=== PATIENT | male | born 1930 | race Caucasian/White ===

== ENCOUNTER 2017-09-22 13:25 | Inpatient (IN) | payer MEDICARE, MEDICAID ==
--- NOTE | 2017-09-22 13:37 | Emergency Department Record ---
History of Present Illness - General Chief complaint: Weakness Stated complaint: GENERAL WEAKNESS Time Seen by Provider: 09/22/17 13:30 Source: Family, EMS Mode of Arrival: EMS Limitations: Altered mental status (chronic life long impariment) - History of Present Illness Initial comments: 86 yo male presents with his sister by ambulance. The patient has life long mental impairment. The last one day he has become very weak and shaky. His baseline is that he is non verbal. No falls. He normally walks with the aid of a walker. He had mild difficulties last night. Today he was too weak and shaky to walk. He lives with his sister. She is his rheumatology nurse. No fevers, vomiting or diarrhea. No outward signs of pain. PCP is in [place]. -: Days(s) (1) Location: Generalized Severity: Moderate Consistency: Constant Improves with: None Worsens with: Exertion, Movement Context: History of similar Associated Symptoms: Denies other symptoms - [place] Coma Scale Eye Response: (4) Open spontaneously Motor Response: (6) Obeys commands Verbal Response: (3) Inappropriate words [place] Total: 13 - Related Data Allergies Allergy/AdvReac Type Severity Reaction Status Date / Time metformin Allergy DIARRHEA Verified 09/22/17 13:35 Review of Systems Constitutional: Reports: Weakness. Denies: Chills, Fever, Malaise Eyes: Denies: Eye discharge, Eye pain, Photophobia, Vision change ENT: Denies: Congestion, Throat pain Respiratory: Denies: Cough, Dyspnea, Hemoptysis, Stridor, Wheezes Cardiovascular: Denies: Chest pain, Palpitations, Syncope Endocrine: Reports: Fatigue. Denies: Polydipsia, Polyuria Gastrointestinal: Denies: Abdominal pain, Diarrhea, Nausea, Vomiting Genitourinary: Denies: Dysuria, Frequency, Hematuria Musculoskeletal: Denies: Arthralgia, Back pain, Joint swelling, Myalgia, Neck pain Skin: Denies: Bruising, Change in color, Rash Neurological: Reports: Tremors, Weakness. Denies: Headache, Numbness Psychiatric: Denies: Anxiety Hematological/Lymphatic: Denies: Blood Clots, Easy bleeding, Easy bruising, Swollen glands Past Medical History - SOCIAL HISTORY Smoking Status: Never smoker - RESPIRATORY Hx Respiratory Disorders: Yes Hx Pneumonia: Yes - CARDIOVASCULAR Hx Cardio Disorders: Yes Hx Heart Attack: Yes Comment:: High cholesterol - NEURO Hx Neuro Disorders: No - GI Hx GI Disorders: Yes Hx Reflux: Yes - Hx Genitourinary Disorders: Yes Hx Prostate Problems: Yes (cancer, shots when psa elevated) - ENDOCRINE Hx Endocrine Disorders: Yes Hx Diabetes: Yes Hx Thyroid Disease: Yes - MUSCULOSKELETAL Hx Musculoskeletal Disorders: Yes Hx Arthritis: Yes - PSYCH Hx Psych Problems: No - HEMATOLOGY/ONCOLOGY Hx Hematology/Oncology Disorders: Yes Hx Cancer: Yes (prostate, skin) Family Medical History Hx Cancer: Brother/Sister Hx Heart Disease: Father Physical Exam - General General Appearance: Alert, Cooperative, No acute distress, Other (Non verbal) Limitations: No limitations - Head Head exam: Normal inspection - Eye Eye exam: negative: Normal appearance (disconjugate gaze, baseline), Conjunctival injection, Scleral icterus - ENT ENT exam: Normal exam, Mucous membranes moist Ear exam: Normal external inspection Nasal Exam: Normal inspection Mouth exam: Normal external inspection Teeth exam: Normal inspection - Neck Neck exam: Normal inspection, Full ROM. negative: Meningismus, Tenderness - Respiratory Respiratory exam: Normal lung sounds bilaterally. negative: Respiratory distress, Rhonchi, Stridor, Wheezes - Cardiovascular Cardiovascular Exam: Regular rate, Normal rhythm, Normal heart sounds Peripheral Pulses: 2+: Radial (R), Radial (L) - GI/Abdominal GI/Abdominal exam: Soft. negative: Distended, Guarding, Rebound, Rigid, Tenderness - Rectal Rectal exam: Deferred - exam: Deferred - Extremities Extremities exam: Normal inspection, Full ROM, Normal capillary refill. negative: Tenderness - Back Back exam: Denies: CVA tenderness (R), CVA tenderness (L) - Neurological Neurological exam: Alert - Psychiatric Psychiatric exam: negative: Agitated, Anxious - Skin Skin exam: Dry, Intact, Normal color, Warm Course - Reevaluation(s) Reevaluation #1: 09/22/17 13:37 EKG 1331 Sinus rhythm rate is 77, intervals Qtc 466, W[place] 260 RBBB, axis normal, ST NS changes 09/22/17 13:38 No old EKG available. 09/22/17 14:25 The CBC and CMP were reviewed No acute changes UA, TSH, and radiology studies pending 09/22/17 15:09 The HCT was negative for acute process. Small vessel ischemic disease CXR stable cardiomegaly 09/22/17 15:12 Waiting for UA still at this time. I discussed possible cath ua. 09/22/17 15:55 Ambulation trial attempted the patient was too shakey and weak. 09/22/17 16:13 The UA was reviewed with negative N and LE, no WBC, few bacteria 09/22/17 16:37 Given his weakness, not able to walk he will be admitted to Dr Moss He requests IVF at 50ml/hr and cipro for the bacteria in the urine. Lab was called to ensure a culture is sent of the urine Medical Decision Making - Lab Data Result diagrams: 09/22/17 13:55 09/22/17 13:40 Disposition Disposition: Admit Clinical Impression: Weakness generalized, Dehydration Disposition: Still a Patient at [facility] Decision to Admit: Admit from ER Decision to Admit Date: 09/22/17 Decision to Admit Time: 16:19 Condition: (2) Stable Forms: Patient Portal Access Time of Disposition: 16:19 Quality - Quality Measures Quality Measures: N/A - Blood Pressure Screening Does Patient Have Any of the Following: Active Dx of HTN Blood Pressure Classification: Hypertensive Reading Systolic Measurement: 141 Diastolic Measurement: 78 Screening for High Blood Pressure: Patient Exclusion, Hx of HTN [G9744]
[2017-09-22 14:02] LABS: HEMATOCRIT 41.1 % (42.0-52.0); HEMOGLOBIN 13.6 gm/dl (14.0-18.0); MEAN CELL VOLUME 92.2 fl (81-97); MEAN CORPUSCULAR HGB CONC 33.1 g/dl (32-36); MEAN PLATELET VOLUME 11.1 fl (7.4-10.4); PLATELET COUNT 256 K/uL (130-400); RED BLOOD COUNT 4.46 M/uL (4.40-5.70); RED CELL DISTRIBUTION WIDTH 12.8 % (11.5-14.5); WHITE BLOOD COUNT W/O DIFF 10.1 K/uL (4.2-12.2)
[2017-09-22 14:08] LABS: MEAN CORPUSCULAR HEMOGLOBIN 30.4 pg (27-33)
[2017-09-22 14:16] LABS: BLOOD UREA NITROGEN 20 mg/dL (8-23); CREATININE 1.1 mg/dL (0.7-1.2); EST GLOMERULAR FILTRATION RATE > 60 mL/min
[2017-09-22 14:17] LABS: INR 1.1; PROTHROMBIN TIME (PATIENT) 11.4 SECONDS (9.5-12.1)
[2017-09-22 14:19] LABS: GLUCOSE,RANDOM 258 mg/dL (74-109)
[2017-09-22 14:22] LABS: ALB/GLOB RATIO 1.4 (1.1-1.8); ALBUMIN 4.1 g/dL (4.0-5.0); ALKALINE PHOSPHATASE 92 U/L (40-129); ALT/SGPT 14 U/L (<41); AST/SGOT 12 U/L (10.0-50.0)
[2017-09-22 14:36] LABS: THYROID STIMULATING HORMONE 1.95 uIU/mL (0.270-4.20)
[2017-09-22] MEDS ORDERED: 0.9 % SODIUM CHLORIDE 1,000 ML BAG IV ONE (15:12)
[2017-09-22 15:53] LABS: URINE APPEARANCE CLEAR; URINE BILIRUBIN NEGATIVE (NEGATIVE); URINE BLOOD NEGATIVE (NEGATIVE); URINE COLOR YELLOW; URINE KETONE NEGATIVE (NEGATIVE); URINE LEUKOCYTE ESTERASE NEGATIVE (NEGATIVE); URINE NITRITE NEGATIVE (NEGATIVE); URINE PROTEIN TRACE (NEGATIVE); URINE UROBILINOGEN 0.2 E.U./dL (0.20 - 1.00)
[2017-09-22 16:08] LABS: URINE BACTERIA FEW; URINE EPITHELIAL CELLS 0 - 2 (FEW); URINE RBC 0 - 2 (NONE SEEN); URINE WBC 0 - 2 (0-2/hpf)
[2017-09-22] MEDS ORDERED: 0.9 % SODIUM CHLORIDE 1000ML 1,000 ML IV PRN (18:04)
[2017-09-22] MEDS: CIPROFLOXACIN LACTATE/D5W 400 MG/200 ML BAG IVPB SCH (18:55)
[2017-09-23] MEDS: ACETAMINOPHEN 325 MG TAB PO PRN ×3 (02:36→22:07)
[2017-09-23] MEDS: CIPROFLOXACIN LACTATE/D5W 400 MG/200 ML BAG IVPB SCH ×2 (06:03→18:20)
[2017-09-23] MEDS ORDERED: GLIMEPIRIDE 2 MG TABLET PO SCH (07:00)
--- NOTE | 2017-09-23 07:17 | CT SCAN REPORT ---
EXAM: CT OF THE BRAIN WITHOUT CONTRAST HISTORY: WEAKNESS. TECHNIQUE: CT of the brain without contrast was obtained. Comparison: None. FINDINGS: The globes are intact. Mucosal thickening of the maxillary sinuses bilaterally. There is no displaced or depressed skull fracture. There is motion artifact which significantly limits the exam and degrades image quality. CT is limited for evaluation of acute infarct. No CT evidence for large or territorial acute infarct. No discreet mass or midline shift. Diffuse atrophy. Small vessel ischemic change. IMPRESSION: LIMITED DUE TO MOTION. NO CT EVIDENCE FOR ACUTE INTRACRANIAL ABNORMALITY. ATROPHY. SMALL VESSEL ISCHEMIC CHANGE. JOB NUMBER: [id number] [facility]
--- NOTE | 2017-09-23 07:19 | RADIOLOGY REPORT ---
EXAM: PORTABLE CHEST HISTORY: WEAKNESS. TECHNIQUE: Portable frontal view of the chest was obtained. Comparison: 05/14/16 chest. FINDINGS: Cardiomegaly with atheromatous change of the thoracic aorta. Osteopenia. Elevation of the right hemidiaphragm. Calcified granulomata left lung base. No pneumothorax. The lungs are otherwise clear. IMPRESSION: CARDIOMEGALY. NO ACUTE CARDIOPULMONARY PROCESS. JOB NUMBER: [id number] MTDD
[2017-09-23] MEDS: PANTOPRAZOLE SODIUM 40 MG TABLET PO SCH (08:41)
[2017-09-23] MEDS: GLIMEPIRIDE 2 MG TABLET PO SCH (08:41)
[2017-09-23] MEDS: MIGLITOL PO SCH ×3 (08:41→18:20)
[2017-09-23] MEDS: NOVOLOG FLEXPEN (INSULIN ASPART) 100 UNITS/ML SQ SCH ×3 (08:42→18:19)
--- NOTE | 2017-09-23 10:10 | History and Physical Report ---
DATE: 09/22/2017 CHIEF COMPLAINT: Weakness, shaky. HISTORY OF PRESENT ILLNESS: This is an 86-year-old male who is nonverbal since postop T&A as a child and severely mentally impaired. His caregiver is his sister. He is weaker than usual. He was having difficulties walking. He normally walks with a walker and he is slightly more shaky than usual. He did eat his breakfast today. He does not appear to be in pain. When he came into the emergency department, he was evaluated by Dr. Ruvalcaba. No history of falls. Was too weak to send home and shaky. He was admitted for dehydration and weakness, possible urinary tract infection. PAST MEDICAL HISTORY: Mentally improved from T&A in childhood, hypercholesterolemia, history of pneumonia in the past, GERD, urinary tract infections, prostate cancer and gets Lupron shots, diabetes mellitus, hypothyroidism, arthritis. PAST SURGICAL HISTORY: Bilateral cataract surgery, temporal artery biopsy, and biopsy of the prostate. MEDICATIONS: 1. Levothyroxine 100 mcg daily. 2. Amaryl 8 mg p.o. daily. 3. Lipitor 20 mg daily. 4. Tenormin 25 mg daily. 5. Aspirin 81 mg daily. 6. Flomax 0.4 mg daily. 7. Prilosec 20 mg daily. 8. Glyset 50 mg t.i.d. with meals. ALLERGIES: METFORMIN. FAMILY/PSYCHOSOCIAL HISTORY: Unremarkable. Caregiver is sister. Brother and sister had cancer. Father had heart disease. Never smoked. No alcohol or drug use. REVIEW OF SYSTEMS: HEENT: No upper respiratory infection symptoms, cough, cold, or congestion. Cardiovascular: No chest pain, palpitations, or arrhythmias. Respiratory: No cough, cold, or congestion. No smoking history. Gastrointestinal: No nausea, vomiting, diarrhea, black stools, or bloody stools. Genitourinary: No dysuria, hematuria, frequency, or burning on urination. He did have bacteria in the urine. Musculoskeletal: He does have arthritis and has some difficulties moving at times. Walks with a walker. Neurological: No CVA, paralysis, or paresthesias. Mentally impaired and nonverbal. Endocrine: He has diabetes mellitus type 2 and hypothyroidism. Integument: No rash, ulcers, change in moles, or yellow skin. PHYSICAL EXAMINATION: VITALS: Height 5 feet 5 inches, weight 192 pounds. Temperature 98.4, pulse 82, blood pressure 125/78, respiratory rate 20, pulse ox 95% on room air. Weight 192 pounds. HEENT: Pupils are equal, round, and reactive to light and accommodation. Extraocular muscles are intact. Throat is clear. Nose is clear. Tympanic membranes are payan. NECK: Supple. No jugular venous distention. No hepatojugular reflux. No carotid bruits. Thyroid is smooth. CARDIOVASCULAR: Regular rate and rhythm without murmurs, clicks, rubs, or gallops. RESPIRATORY: Clear to auscultation and percussion. ABDOMEN: Soft, nontender. No hepatosplenomegaly, no masses, no tenderness. Bowel sounds are active. EXTREMITIES: No pitting edema. No cyanosis, no clubbing. Full range of motion. Peripheral pulses are good. BREASTS: Normal male breasts. RECTAL: Exam deferred. GENITALIA: Deferred. NEUROLOGIC: Cranial nerves II-XII intact. No gross defects. Sensation normal, strength normal. Deep tendon reflexes equal bilaterally with Babinski negative. He is nonverbal. MENTAL STATUS: Alert but he is unable to test for time, place, or person orientation. IMPRESSION: 1. Weakness. 2. Dehydration. 3. Urinary tract infection. 4. Mentally handicapped since childhood and nonverbal. His caregiver is his sister. 5. Diabetes mellitus type 2. 6. Hypothyroidism. PLAN: Cautious IV hydration. Will start Cipro twice a day and further evaluation. MTDD
[2017-09-23] MEDS: LEVOTHYROXINE SODIUM 100 MCG TABLET PO SCH (11:21)
[2017-09-23] MEDS: ATORVASTATIN 20 MG TABLET PO SCH (11:21)
[2017-09-23] MEDS: ASPIRIN 81 MG TABEC PO SCH (11:22)
[2017-09-23] MEDS: ATENOLOL 25 MG TABLET PO SCH (11:22)
[2017-09-23] MEDS ORDERED: ZINC OXIDE 28.35 GM TUBE TOP PRN (11:26)
[2017-09-23] MEDS: ENOXAPARIN 40 MG/0.4 ML SYR SC SCH (11:28)
[2017-09-23] MEDS: TAMSULOSIN HCL 0.4 MG CAP.ER.24H PO SCH (11:30)
--- NOTE | 2017-09-23 15:04 | Rehab Evaluation ---
Patient Information - Patient Information Diagnosis: weakness, dehydration, bacteria in urine Ordered Treatment: OT Evaluate and Treat Status: Initial Evaluation Surgery: No Past Medical/Surgical Hx: PAST MEDICAL/SURGICAL HISTORY Past Surgical History bilateral cataracts temporal artery biopsy...negative PMH - Respiratory Hx Respiratory Disorders Yes Hx Pneumonia Yes PMH - Cardiovascular Hx Cardiovascular Disorders Yes Hx Heart Attack Yes Comment: High cholesterol PMH - Neuro Hx Neurological Disorders No PMH - GI Hx Gastrointestinal Disorders Yes Hx Gastroesophageal Reflux Yes PMH - Hx Genitourinary Disorders Yes Hx Prostate Problems Yes: cancer, shots when psa elevated PMH - Endocrine Hx Endocrine Disorders Yes Hx Diabetes Yes Hx Thyroid Disease Yes PMH - Musculoskeletal Hx Musculoskeletal Disorders Yes Hx Arthritis Yes PMH - Psych Hx Psychiatric Problems No PMH - Hematology/Oncology Hx Hematology/Oncology Yes Disorders Hx Cancer Yes: prostate, skin Hx Chemotherapy Yes Premorbid Status: Detail (Pt is developmentally delayed and lives with his sister. He has 2 steps at the entrance and family assists him with these. They are planning to install a ramp. His sister completes all of his self cares including bathing, dressing, grooming and hygeine. He is able to feed himself. He ambulates with a 2 wheeled walker and is Ind with bed mobility at home.) Social History: Detail (Very supportive family) Precautions: [place], Fall, Other (impaired cognition) - Time With Patient Total Time Spent With Patient (Min): 35 Treatment Procedures: Detail (OT eval low complexity) Subjective Information - Subjective Information Other (Per pt's siblings.) Objective Data - Pain Pain Present: Yes (Pt was c/o left knee pain during evaluation.) - Mental Status Patient Orientation: Person (Pt responds to name but he is non-verbal. He was unable to follow verbal commands and required tactile cues for evaluation.) - Visual Perception Other (Unable to formally determine) - ROM Other (Unable to formally assess due to impaired cognition, UE AROM appears functional for patients level of activity.) - Strength/Tone Other (Unable to formally test due to impaired cognition, UE MMT appears functional for his current level of activity.) - Coordination Other (Unable to formally assess.) - Bed Mobility Needs Assist (Min assist required for supine to sit, he completed sit to supine Indly but required max assist x 2 to scoot up in bed.) - Transfers Needs Assist (Sit to stand x 1 from EOB to walker with mod assist x 2. Pt only able to stand for several seconds due to c/o left knee pain.) - Balance Balance Sitting: Fair (Pt required some assist with sitting balance at EOB.) Balance Standing: Poor - Gait Detail (Pt unable to ambulate at this time.) - ADL's/IADL's Detail (Pt requires total assist for all self cares and family report they are assisting with feeding.) Therapy Assessment - Therapy Assessment Detail (Pt presents with significant impairments with cognition, functional mobility and decreased Ind with ability to feed self.) Problem List - Problem List Occupational Therapy Problem List: Detail (1. Decreased Ind with feeding self. 2. Decreased functional mobility needed for safe return home with sister.) Goals - Goals Occupational Therapy Goals: 1. Pt will be Ind with feeding self. 2. Pt will be Ind with bed mobility. 3. Pt will amb 20 feet with 2 wheeled walker. Prognosis - Prognosis Moderate Plan - Plan Occupational Therapy Plan: OT 2-4 days per week to address self cares, functional mobility to allow safe return home with sister.
--- NOTE | 2017-09-23 15:57 | Rehab Evaluation ---
Patient Information - Patient Information Diagnosis: weakness, dehydration, bacteria in urine Ordered Treatment: PT Evaluate and Treat Status: Initial Evaluation Surgery: No Past Medical/Surgical Hx: PAST MEDICAL/SURGICAL HISTORY Past Surgical History bilateral cataracts temporal artery biopsy...negative PMH - Respiratory Hx Respiratory Disorders Yes Hx Pneumonia Yes PMH - Cardiovascular Hx Cardiovascular Disorders Yes Hx Heart Attack Yes Comment: High cholesterol PMH - Neuro Hx Neurological Disorders No PMH - GI Hx Gastrointestinal Disorders Yes Hx Gastroesophageal Reflux Yes PMH - Hx Genitourinary Disorders Yes Hx Prostate Problems Yes: cancer, shots when psa elevated PMH - Endocrine Hx Endocrine Disorders Yes Hx Diabetes Yes Hx Thyroid Disease Yes PMH - Musculoskeletal Hx Musculoskeletal Disorders Yes Hx Arthritis Yes PMH - Psych Hx Psychiatric Problems No PMH - Hematology/Oncology Hx Hematology/Oncology Yes Disorders Hx Cancer Yes: prostate, skin Hx Chemotherapy Yes Premorbid Status: Detail (Pt is developmentally delayed and lives with his sister. He has 2 steps at the entrance and family assists him with these. They are planning to install a ramp. His sister completes all of his self care including bathing, dressing, grooming and hygeine. He is able to feed himself. He ambulates with a 2 wheeled walker and is Ind with bed mobility at home.) Social History: Detail (Very supportive family) Precautions: [place], Fall, Other (impaired cognition) - Time With Patient Total Time Spent With Patient (Min): 25 Treatment Procedures: Detail (Initial Evaluation) Subjective Information - Subjective Information Per Patient (The patient moaned in pain when standing and rubbed his L knee.) Objective Data - Mental Status Patient Orientation: Person (Unable to assess mentation due to patient was nonverbal however the patient followed simple commands and shook his head no to communicate he couldn't do something.) - ROM Not within normal limits (Unable to fully assess however L knee flexion was minimally limited. L knee exhibited increased edema and was warm to touch.) - Strength/Tone Not within normal limits (Unable to Manual muscle test due to patient did not fully understand use of resistance.) - Bed Mobility Needs Assist (The patient required minimal PA of 1 with supine to and from sit transfer.) - Transfers Needs Assist (The patient required mod. PA of 2 for sit to and from stand transfer to a 2 wheeled walker. The patient stood for aprox. 15 sec. Patient winced and rubbed L knee upon sitting. When asked to stand again patient shook his head no and laid back in bed.) - Balance Balance Sitting: Good Balance Standing: Poor - Gait Detail (The patient did not ambulate.) Therapy Assessment - Therapy Assessment Detail (The patient required assistance with bed mobility and transfers. Patient's left knee appears painful, the patient was reluctant to weight bear on L LE and knee exhibited increased swelling and was warm to touch. RN was notified. Feel the patient's pain is limiting the patient's ability to ambulate. Feel the patient will benefit from ongoing PT to return the patient to previous functional level.) Problem List - Problem List Physical Therapy Problem List: Detail (1)Painful, swollen L knee 2) Minimal assistance with bed mobility and moderate assist with transfers 3) nonambulatory ) Occupational Therapy Problem List: Detail (1. Decreased Ind with feeding self. 2. Decreased functional mobility needed for safe return home with sister.) Goals - Goals Physical Therapy Goals: 1) The patient will be independent with bed mobility. 2 ) The patient will achieve sit to and from stand transfer with supervision . 3 ) The patient will ambulate with wheeled walker household distances with supervision for safety. Occupational Therapy Goals: 1. Pt will be Ind with feeding self. 2. Pt will be Ind with bed mobility. 3. Pt will amb 20 feet with 2 wheeled walker. Plan - Plan Physical Therapy Plan: PT 1-2 times a day for gait training, transfer training and bed mobility, LE strengthening exercises. Occupational Therapy Plan: OT 2-4 days per week to address self cares, functional mobility to allow safe return home with sister.
--- NOTE | 2017-09-23 16:04 | Inpatient Certification ---
Inpatient Certification Admit to inpatient care: Based on my medical assessment, after consideration of patient's risk factors (age, co-morbidities and patient presenting symptoms and acuity), I expect that this patient will remain in the hospital greater than or equal to two midnights and that the services needed warrant inpatient care because: Patient Risk Factors: [] Estimated length of stay: [2] The patient may reasonably be expected to be discharged or transferred to a hospital within 96 hours after admission to [facility]. Services needed: [iv fluids and antibiotics] Post hospital care (if known): [] I certify that my determination is in accordance with my understanding of Medicare requirements for reasonable and necessary inpatient services. 09/23/17 16:03
[2017-09-24] MEDS: ACETAMINOPHEN 325 MG TAB PO PRN (04:50)
[2017-09-24] MEDS: CIPROFLOXACIN LACTATE/D5W 400 MG/200 ML BAG IVPB SCH ×2 (05:00→18:02)
[2017-09-24] MEDS: PANTOPRAZOLE SODIUM 40 MG TABLET PO SCH (06:41)
[2017-09-24] MEDS: LEVOTHYROXINE SODIUM 100 MCG TABLET PO SCH (06:41)
[2017-09-24] MEDS: NOVOLOG FLEXPEN (INSULIN ASPART) 100 UNITS/ML SQ SCH ×3 (08:00→18:00)
[2017-09-24] MEDS: MIGLITOL PO SCH ×3 (08:01→18:07)
[2017-09-24] MEDS: GLIMEPIRIDE 2 MG TABLET PO SCH (09:19)
[2017-09-24] MEDS: ASPIRIN 81 MG TABEC PO SCH (10:01)
[2017-09-24] MEDS: ATORVASTATIN 20 MG TABLET PO SCH (10:01)
[2017-09-24] MEDS: ATENOLOL 25 MG TABLET PO SCH (10:02)
[2017-09-24] MEDS: ENOXAPARIN 40 MG/0.4 ML SYR SC SCH (10:02)
[2017-09-24] MEDS: TAMSULOSIN HCL 0.4 MG CAP.ER.24H PO SCH (10:02)
--- NOTE | 2017-09-24 11:43 | Physical Therapy Tx Note ---
Physical Therapy Tx Note - Treatment Note Total Time Spent With Patient: 10 Physical Therapy Tx Note: Detail (Pt in bed upon arrival, denied pain at rest. Initially seemed agreeable to try bed mobility, sitting, standing, but then started shaking his head no and covering himself with bed linens. Spoke with nrsg; will attempt mobility when patient's sister is present later today.) Physical Therapy Problem List: Detail (1)Painful, swollen L knee 2) Minimal assistance with bed mobility and moderate assist with transfers 3) nonambulatory ) Physical Therapy Goals: 1) The patient will be independent with bed mobility. 2 ) The patient will achieve sit to and from stand transfer with supervision . 3 ) The patient will ambulate with wheeled walker household distances with supervision for safety. Physical Therapy Plan: PT 1-2 times a day for gait training, transfer training and bed mobility, LE strengthening exercises.
[2017-09-24] MEDS ORDERED: PATIENT OWN MED: MC SCH (14:45)
--- NOTE | 2017-09-24 15:38 | Physical Therapy Tx Note ---
Physical Therapy Tx Note - Treatment Note Tolerated: Fair Total Time Spent With Patient: 30 Physical Therapy Tx Note: Detail (Pt reclined in bed upon arrival; sisters Brandy and Lnida present in room. Pt required much encouragement from therapist and from family to participate with therapy. He was able to sit up at edge of bed independently, but needed min assist to scoot forward to get feet on floor. Required mod assist to come to standing at front wheeled walker , with much encouragement from sisters. Stood at walker x 2 for about 15 seconds each, with encouragement. Got back in bed independently but needed heavy moderate assist to reposition self in bed. Discussed possibilities of inpatient rehab vs. home care to facilitate more progress toward previous functional level; told family that I would have Special Library Librarian come speak with him to help develop a plan. Pt left up in bed w/call light in reach and family members present.) Physical Therapy Problem List: Detail (1)Painful, swollen L knee 2) Minimal assistance with bed mobility and moderate assist with transfers 3) nonambulatory ) Physical Therapy Goals: 1) The patient will be independent with bed mobility. 2 ) The patient will achieve sit to and from stand transfer with supervision . 3 ) The patient will ambulate with wheeled walker household distances with supervision for safety. Prognosis: Moderate Physical Therapy Plan: PT 1-2 times a day for gait training, transfer training and bed mobility, LE strengthening exercises.
[2017-09-24] MEDS: ACETAMINOPHEN 325 MG TAB PO SCH (18:05)
[2017-09-24] MEDS: BIOFREEZE TOP SCH (18:07)
[2017-09-25] MEDS: ACETAMINOPHEN 325 MG TAB PO SCH ×3 (00:41→13:53)
[2017-09-25] MEDS: BIOFREEZE TOP SCH ×3 (00:42→13:54)
[2017-09-25] MEDS ORDERED: CALCIUM CARBONATE 500 MG TAB.CHEW PO PRN (01:58)
[2017-09-25] MEDS ORDERED: LEVOTHYROXINE SODIUM 100 MCG TABLET PO SCH (06:00)
[2017-09-25] MEDS: CIPROFLOXACIN LACTATE/D5W 400 MG/200 ML BAG IVPB SCH (06:09)
--- NOTE | 2017-09-25 07:20 | RADIOLOGY REPORT ---
EXAM: LEFT KNEE HISTORY: KNEE PAIN. TECHNIQUE: Two views of the left knee were obtained. Comparison: None. Encounter: Initial. FINDINGS: Osteopenia. Negative for acute fracture or dislocation. Vascular calcifications. Advanced tricompartmental degenerative change. Probable small joint effusion. IMPRESSION: OSTEOPENIA WITH ADVANCED DEGENERATIVE CHANGE. JOB NUMBER: [id number] MTDD
--- NOTE | 2017-09-25 07:21 | RADIOLOGY REPORT ---
EXAM: RIGHT KNEE HISTORY: KNEE PAIN. TECHNIQUE: Two views of the right knee were obtained. Comparison: None. Encounter: Initial. FINDINGS: Osteopenia. Negative for an acute fracture or dislocation. Advanced tricompartmental degenerative change. Small joint effusion. Vascular calcifications. IMPRESSION: OSTEOPENIA WITH ADVANCED DEGENERATIVE CHANGE. JOB NUMBER: [id number] MTDD
[2017-09-25] MEDS: GLIMEPIRIDE 2 MG TABLET PO SCH (08:25)
[2017-09-25] MEDS: PANTOPRAZOLE SODIUM 40 MG TABLET PO SCH (08:26)
[2017-09-25] MEDS: NOVOLOG FLEXPEN (INSULIN ASPART) 100 UNITS/ML SQ SCH ×2 (08:26→11:45)
[2017-09-25] MEDS: MIGLITOL PO SCH ×2 (08:26→11:45)
--- NOTE | 2017-09-25 09:23 | Inpatient Certification ---
Inpatient Certification Admit to inpatient care: Based on my medical assessment, after consideration of patient's risk factors (age, co-morbidities and patient presenting symptoms and acuity), I expect that this patient will remain in the hospital greater than or equal to two midnights and that the services needed warrant inpatient care because: Patient Risk Factors: [mentally impaired] Estimated length of stay: [3days] The patient may reasonably be expected to be discharged or transferred to a hospital within 96 hours after admission to [facility]. Services needed: [iv cipro rehab] Post hospital care (if known): [patient requires a caregiver] I certify that my determination is in accordance with my understanding of Medicare requirements for reasonable and necessary inpatient services. 09/25/17 09:21
[2017-09-25] MEDS ORDERED: IBUPROFEN 400 MG TABLET PO PRN (09:57)
[2017-09-25] MEDS: ASPIRIN 81 MG TABEC PO SCH (10:27)
[2017-09-25] MEDS: TAMSULOSIN HCL 0.4 MG CAP.ER.24H PO SCH (10:31)
[2017-09-25] MEDS: ATORVASTATIN 20 MG TABLET PO SCH (10:31)
[2017-09-25] MEDS: ENOXAPARIN 40 MG/0.4 ML SYR SC SCH (10:31)
[2017-09-25] MEDS: ATENOLOL 25 MG TABLET PO SCH (10:38)
--- NOTE | 2017-09-25 12:48 | Discharge Note ---
VTE H&P Assessment - Risk for VTE Risk for VTE: Yes Risk Level: Moderate Risk Assessment Date: 09/23/17 Risk Assessment Time: 18:00 VTE Orders Placed or Will Be Placed: Yes Discharge Medications - Discharge Medications Prescriptions: Ibuprofen [Motrin 400Mg] 400 mg PO Q6H PRN #30 tablet PRN Reason: Analgesia Home Medications: Ambulatory Orders Aspirin [Adult Low Dose Aspirin EC] 81 mg PO DAILY 05/14/16 [Last Taken 05/14/16 ] Atenolol [Tenormin] 25 mg PO DAILY 05/14/16 [Last Taken 05/14/16] Atorvastatin Calcium [Lipitor] 20 mg PO DAILY 05/14/16 [Last Taken 05/13/16] Glimepiride [Amaryl] 8 mg PO DAILY 05/14/16 [Last Taken 05/14/16] Levothyroxine Sodium [Synthroid] 100 mcg PO DAILY 05/14/16 [Last Taken 05/14/16] Miglitol [Glyset] 50 mg PO TID 05/14/16 [Last Taken 05/13/16] Omeprazole [Prilosec] 20 mg PO DAILY 05/14/16 [Last Taken 05/14/16] Tamsulosin HCl [Flomax] 0.4 mg PO DAILY 05/14/16 [Last Taken 05/13/16] Ibuprofen [Motrin 400Mg] 400 mg PO Q6H PRN #30 tablet 09/25/17 [Last Taken Unknown] Discharge Note - Date Date of Discharge Note: 09/25/17 Condition: (2) Stable Additional Instructions: patient going to swing bed for assistance with ambulation Forms: Patient Portal Access
--- NOTE | 2017-09-25 12:55 | Physical Therapy Tx Note ---
Physical Therapy Tx Note - Treatment Note Tolerated: Fair Total Time Spent With Patient: 15 Physical Therapy Tx Note: Detail (The patient was in bed eating when PT/OT arrived. The patient's sisters were present. The patient was asked if he wanted to get up and he nodded his head yes and acheived supine to sit independently. The patient was asked if his knees were hurting he shook his head no. The patient achieved sit to stand with minimal PA of 1 and transferred to chair with CG of 2. The patient beared weight on both LE's and took a few turning steps. The patient shook his head no when he was asked if he wanted to walk. When asked if his knees hurt now he shook his head yes and rubbed his left knee. The patient pointed to his lunch. The patient was given his luch , chair alarm was turned on and tray placed in front of patient. Virtualization Architect and sister were present. The patient exhibited improved function this afternoon.) Physical Therapy Problem List: Detail (1)Painful, swollen L knee 2) Minimal assistance with bed mobility and moderate assist with transfers 3) nonambulatory ) Physical Therapy Goals: 1) The patient will be independent with bed mobility. 2 ) The patient will achieve sit to and from stand transfer with supervision . 3 ) The patient will ambulate with wheeled walker household distances with supervision for safety. Physical Therapy Plan: PT 1-2 times a day for gait training, transfer training and bed mobility, LE strengthening exercises.
--- NOTE | 2017-09-25 15:11 | RADIOLOGY REPORT ---
EXAM: PELVIS AND BILATERAL HIPS HISTORY: PAIN. TECHNIQUE: A single AP view of the pelvis and AP and frog leg views of both hips joints were performed. FINDINGS: No evidence of fracture or dislocation. There is mild degenerative change. No lytic or blastic lesion. IMPRESSION: NO EVIDENCE OF FRACTURE OR DISLOCATION. THERE IS MILD DEGENERATIVE CHANGE. JOB NUMBER: [id number] MTDD
--- NOTE | 2017-09-25 15:13 | RADIOLOGY REPORT ---
EXAM: LUMBAR SPINE HISTORY: BACK PAIN. TECHNIQUE: AP and lateral views of the lumbar spine were performed. FINDINGS: There is mild disk space narrowing and spondylotic spurring at L3-L4 through L5-S1 levels. No evidence of fracture. No spondylolysis or spondylolisthesis. IMPRESSION: MILD DISK SPACE NARROWING AND SPONDYLOTIC SPURRING AT L3-L4 THROUGH L5-S1 LEVELS. JOB NUMBER: [id number] MTDD
[2017-09-25] MEDS ORDERED: CIPROFLOXACIN HCL 500 MG TABLET PO SCH (22:00)
--- NOTE | 2017-09-27 13:42 | Swing Bed Certification/Recert ---
Initial Certification Due: 09/22/17 14 Day Re-Cert Due: 10/06/17 44 Day Re-Cert Due: 11/05/17 74 Day Re-Cert Due: 12/05/17 CERTIFICATION 3 CERTIFICATION OF PATIENT ADMISSION Required at time of admission. Due: 09/22/17 I certify that SNF services are required to be given on an inpatient basis because of the above named patient's need for [facility] care on a continuing basis for the condition(s) for which he/she was receiving inpatient hospital services prior to his/her transfer to the SNF. The patient's current needs for skilled care includes: [physical deconditioning , difficulty ambulating] Brissa Arnold 09/27/17
--- NOTE | 2017-09-28 10:00 | Medical Records Consult ---
DATE OF CONSULTATION: 09/25/2017 REASON FOR CONSULTATION: Dysphagia. HISTORY OF PRESENT ILLNESS: This is an 86-year-old male with history of dementia who presented to the hospital with complaints of weakness and was admitted to the hospital for dehydration and it was noted that he was sort of choking on feeds. I have now been asked to evaluate him. Since he is not a good historian, history is obtained from family member who is at the bedside. He has had intermittent difficulty with swallowing with occasional choking according to . There is no unexplained weight loss according to sister. PAST MEDICAL HISTORY: Significant for hypothyroidism, hypercholesterolemia, hypertension, dementia. MEDICATIONS: 1. Tenormin. 2. Levothyroxine. 3. Amaryl. 4. Lipitor. 5. Prilosec. 6. Flomax. ALLERGIES: METFORMIN. REVIEW OF SYSTEMS: A 12-point systemic review is performed and is documented in his chart. PHYSICAL EXAMINATION: GENERAL: An elderly male in no apparent distress sitting by the bedside. VITAL SIGNS: Blood pressure 120/66, heart rate 50, respirations 18. HEENT: He is not pale or jaundiced. Oral mucosa is dry with no ulcerations. HEART: Normal S1, S2. No gallop or murmur. ABDOMEN: Soft, nontender. No hepatosplenomegaly or organomegaly. Bowel sounds are present. EXTREMITIES: There is no edema, cyanosis or clubbing. NEUROLOGIC: He is alert but not oriented to time, place, or person. LABORATORY DATA: He had complete blood count that was essentially normal. IMPRESSION: This is an 86-year-old male with dysphagia, probably oropharyngeal dysphagia. PLAN: My plan and recommendation at this point will include: 1. I agree with obtaining a swallow evaluation. 2. In the meantime, he should be on a dysphagia diet and we will see him back as needed. Thank you for allowing me to participate in the care of this patient. CC: DO BIJAN Young
== END 2017-09-25 16:33 | disposition home or self-care (01) | DRG 948 ==
LOC: ER 13:25 → MEDSURG 17:48
PROVIDERS: ADMIT Emergency Medicine; ATTEND Emergency Medicine
DX: R53.1 Weakness (principal); E86.0 Dehydration; K21.9 Gastro-esophageal reflux disease without esophagitis; E11.9 Type 2 diabetes mellitus without complications; Z79.4 Long term (current) use of insulin; E78.00 Pure hypercholesterolemia, unspecified; I10 Essential (primary) hypertension; E03.9 Hypothyroidism, unspecified; M19.90 Unspecified osteoarthritis, unspecified site; I25.2 Old myocardial infarction; Z85.46 Personal history of malignant neoplasm of prostate; Z85.820 Personal history of malignant melanoma of skin; F79 Unspecified intellectual disabilities
CPT/HCPCS: 36416; 70450; 71045; 72100; 73521; 80053; 81001; 82948; 84443; 84484; 84550; 85027; 85610; 85730; 93005; 93010; 96360; 97530; 99223; 99233; 99239; 99285; J1650; J7030

== ENCOUNTER 2017-09-25 13:18 | Inpatient (IN) | payer MEDICARE, MEDICAID ==
[2017-09-25] MEDS ORDERED: ZINC OXIDE 28.35 GM TUBE TOP PRN (16:50)
[2017-09-25] MEDS ORDERED: CALCIUM CARBONATE 500 MG TAB.CHEW PO PRN (16:51)
[2017-09-25] MEDS ORDERED: IBUPROFEN 400 MG TABLET PO PRN (16:52)
[2017-09-25] MEDS ORDERED: IBUPROFEN 200 MG TABLET PO PRN (18:10)
[2017-09-25] MEDS: NOVOLOG FLEXPEN (INSULIN ASPART) 100 UNITS/ML SQ SCH (18:12)
[2017-09-25] MEDS: ACETAMINOPHEN 325 MG TAB PO SCH ×2 (18:18→23:05)
[2017-09-25] MEDS: MIGLITOL PO SCH (18:18)
[2017-09-25] MEDS: BIOFREEZE TOP SCH (18:18)
[2017-09-25] MEDS: CIPROFLOXACIN HCL 500 MG TABLET PO SCH (23:06)
[2017-09-26] MEDS: BIOFREEZE TOP SCH ×5 (00:01→23:34)
[2017-09-26] MEDS ORDERED: DIPHENHYDRAMINE HCL 25 MG CAPSULE PO PRN (02:30)
[2017-09-26] MEDS: ACETAMINOPHEN 325 MG TAB PO SCH ×4 (06:14→23:33)
[2017-09-26] MEDS: PANTOPRAZOLE SODIUM 40 MG TABLET PO SCH (06:15)
[2017-09-26] MEDS: LEVOTHYROXINE SODIUM 100 MCG TABLET PO SCH (06:15)
[2017-09-26] MEDS: GLIMEPIRIDE 2 MG TABLET PO SCH (08:13)
[2017-09-26] MEDS: MIGLITOL PO SCH ×3 (08:14→18:11)
[2017-09-26] MEDS: NOVOLOG FLEXPEN (INSULIN ASPART) 100 UNITS/ML SQ SCH ×3 (08:17→18:50)
--- NOTE | 2017-09-26 08:40 | History & Physical ---
History of Present Illness - Date Date of Service for History & Physical: 09/26/17 - History of Present Illness Admitting Diagnosis: Deconditioning due to UTI & dehydration History of Present Illness: 87yo male admitted to [facility] for deconditioning. He has history of MR since childhood and is nonverbal. 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 He was admitted to [facility] for weakness and dehydration. Sister seemed to feel he was having some difficulty walking. She thought he seemed painful in his knees and hips. Both were XR showing arthritis but nothing acute. The dehydration resolved with IV fluids and patient progressed to tolerating clear fluids. He did see some improvement in his generalized weakness with starting tylenol and ibuprofen, but was still below baseline so was admitted to to continue therapy. 09/26/17- Patient resting comfortably in chair with family. Patient's sister says today he seems more like himself. He has been up with assistance and walker to the bathroom several times. He is not seeming as painful with ambulation. He is smiling, laughing and appetite has improved. He will continue to work with PT/OT with plan to go home with sister. General - Cognitive Patterns Orientation: Person - Communication Preferred Language?: Setswana Comprehension Ability: Impairment Able to Read: No Able to Write: No Select best description of speech pattern: Unclear Speech Ability to express ideas and wants: Rarely/Never Understood Understanding verbal content: Rarely/Never Understands - Psychosocial Well-Being Usual Living Arrangement: Other Living Arrangement Comment: Sister is caregiver - Physical Functioning Activity Level: Up with assist x2 Turning: With partial assist ROM Ability: Limited/Compromised Assistive Devices: 2 Wheel Walker, Wheel Chair Ambulation Ability: Needs Assist Bed Mobility: Needs Assist Transfer Ability: Needs Assist Bathing Ability: Needs Assist Personal Hygiene: Needs Assist Dressing Ability: Needs Assist Eating (Feeding) Ability: Needs Assist Toileting Ability: Needs Assist Administer Own Medication: Dependent - Continence Bowel Pattern: Constipated Bladder Pattern: Incontinent Urinary Incontinence: Total - Dental Status Unable to examine: No Broken or loosely fitting full or partial dentures: No No natural teeth or tooth fragment(s) (edentulous): Yes Abnormal mouth tissue (ulcers, masses, oral lesions, etc.): No Obvious or likely cavity or broken natural teeth: No Inflamed or bleeding gums or loose natural teeth: No Mouth/facial pain, discomfort or difficulty chewing: Not Assessed/No Information - Nutrition Screening Poor oral intake > 1 week: No Unplanned weight loss in specified time frame: No Nutrition Support via tube feedings or parenteral nutrition: No Pressure Ulcer: No Significantly underweight define as BMI <18.5 kg/m2: No Albumin <2.5mg/dL: No Persistent nausea/vomiting/diarrhea >3 days: No Difficulty chewing/swallowing/mouth sores: Yes Admitting Diagnosis: No Nutrition Risk Score: Moderate Risk Review of Systems Constitutional: Reports: Weakness (generalized). Denies: Chills, Fever Eyes: Denies: Eye pain ENT: Denies: Ear pain Respiratory: Denies: Cough, Dyspnea, Wheezes Cardiovascular: Denies: Chest pain, Edema Gastrointestinal: Denies: Constipation, Diarrhea Musculoskeletal: Reports: Arthralgia (hips/knees) Neurological: Reports: Weakness Past Medical History - SOCIAL HISTORY Smoking Status: Never smoker Alcohol Use: None - SURGICAL HISTORY Past Surgical History: bilateral cataracts. temporal artery biopsy...negative - RESPIRATORY Hx Respiratory Disorders: Yes Hx Pneumonia: Yes - CARDIOVASCULAR Hx Cardio Disorders: Yes Hx Heart Attack: Yes Comment:: High cholesterol - NEURO Hx Neuro Disorders: No - GI Hx GI Disorders: Yes Hx Reflux: Yes - Hx Genitourinary Disorders: Yes Hx Prostate Problems: Yes (cancer, shots when psa elevated) - ENDOCRINE Hx Endocrine Disorders: Yes Hx Diabetes: Yes Hx Thyroid Disease: Yes - MUSCULOSKELETAL Hx Musculoskeletal Disorders: Yes Hx Arthritis: Yes - PSYCH Hx Psych Problems: No - HEMATOLOGY/ONCOLOGY Hx Hematology/Oncology Disorders: Yes Hx Cancer: Yes (prostate, skin) Family Medical History Any Significant Family History?: No Hx Cancer: Brother/Sister Hx Heart Disease: Father Hx Stroke: Brother/Sister *Stroke Comment: sister had mini stroke H&P Meds/Allergies - Allergies Allergies: Allergies Allergy/AdvReac Type Severity Reaction Status Date / Time metformin Allergy DIARRHEA Verified 09/22/17 13:35 - Home Medications Previous Rx's Medication Instructions Recorded Ibuprofen [Motrin 400Mg] 400 mg PO Q6H PRN #30 tablet 09/25/17 - Active Medications Active Medications: Current Medications Acetaminophen (Tylenol 325mg) 650 mg PO Q6H [facility] Last Admin: 09/26/17 06:14 Dose: 650 mg Aspirin (Ecotrin (Ec)) 81 mg PO DAILY [facility] Atenolol (Tenormin) 25 mg PO DAILY [facility] Atorvastatin Calcium (Lipitor) 20 mg PO DAILY [facility] Calcium Carbonate/Glycine (Tums) 1,000 mg PO TIDAC PRN PRN Reason: GI UPSET Ciprofloxacin (Cipro) 500 mg PO Q12HR [facility] Stop: 09/28/17 22:01 Last Admin: 09/25/17 23:06 Dose: 500 mg Diphenhydramine HCl (Benadryl Capsule) 25 mg PO QHS PRN PRN Reason: sleep aid Enoxaparin Sodium (Lovenox) 40 mg SQ DAILY [facility] Glimepiride (Amaryl) 8 mg PO DAILY@0800 [facility] Last Admin: 09/26/17 08:13 Dose: 8 mg Ibuprofen (Motrin 400mg) 400 mg PO Q6H PRN PRN Reason: Pain - General Ibuprofen (Motrin 200mg) 400 mg PO Q6H PRN PRN Reason: Pain - General Last Admin: 09/25/17 20:51 Dose: 400 mg Insulin Aspart (Novolog Flexpen) [facility] SQ [facility]; Protocol Last Admin: 09/26/17 08:17 Dose: Not Given Levothyroxine Sodium (Synthroid) 100 mcg PO [id number] [facility] Last Admin: 09/26/17 06:15 Dose: 100 mcg Non-Formulary Medication (Miglitol [Glyset]) 50 mg PO TIDINS [facility] Last Admin: 09/26/17 08:14 Dose: 50 mg Pantoprazole Sodium (Protonix) 40 mg PO DAILYAC [facility] Last Admin: 09/26/17 06:15 Dose: 40 mg Patient Own Med: (Biofreeze) 1 each TOP Q6HR [facility] Last Admin: 09/26/17 06:15 Dose: 1 each Tamsulosin HCl (Flomax) 0.4 mg PO DAILY [facility] Zinc Oxide (Desitin) 28.35 gm TOP ASDIR PRN PRN Reason: RASH Last Admin: 09/25/17 23:06 Dose: 28.35 gm Physical Exam - Vital Signs Vital Signs: Vital Signs - Last 24 Hrs Temp Pulse Resp BP Pulse Ox 09/26/17 07:59 97.6 F 53 L 16 135/69 98 09/25/17 20:00 97.7 F 70 16 139/103 95 - General General Appearance: Alert, Cooperative, No acute distress - Head Head exam: Normal inspection - ENT ENT exam: Normal exam, Mucous membranes moist, Normal external ear exam, Normal orophraynx, TM's normal bilaterally - Neck Neck exam: Normal inspection, Full ROM. negative: Tenderness - Respiratory Respiratory exam: Normal lung sounds bilaterally. negative: Respiratory distress - Cardiovascular Cardiovascular Exam: Regular rate, Normal rhythm, Normal heart sounds - GI/Abdominal GI/Abdominal exam: Soft, Normal bowel sounds. negative: Tenderness - Back Back exam: Reports: Normal inspection, Full ROM. Denies: Muscle spasm, Rash noted, Tenderness - Neurological Neurological exam: Alert, Reflexes normal - Psychiatric Psychiatric exam: Normal affect, Normal mood H&P Results - Labs Labs Last 24 Hours: Laboratory Results - last 24 hr 09/25/17 09/25/17 09/26/17 17:30 22:09 07:30 POC Glucose 204 H 181 H 183 H Discharge Potential - Discharge Needs Community Services Used Prior to Admission: Home Health Nurse Patient Discharge Plan Description: Return Home Plan - Swing Bed Certification Initial Certification Due: 09/25/17 14 Day Re-Cert Due: 10/09/17 44 Day Re-Cert Due: 11/08/17 74 Day Re-Cert Due: 12/08/17 - Detailed Diagnosis and Plan (1) Weakness generalized Current Visit: No Status: Acute Base Code: R53.1 - WEAKNESS Comment: - physical deconditioning with difficulty ambulation. -continue to work with PT-OT M-F (2) Full code status Current Visit: No Status: Acute Base Code: Z78.9 - OTHER SPECIFIED HEALTH STATUS Comment: 09/26/17- patient is full code
[2017-09-26] MEDS: CIPROFLOXACIN HCL 500 MG TABLET PO SCH ×2 (11:38→21:26)
[2017-09-26] MEDS: ENOXAPARIN 40 MG/0.4 ML SYR SQ SCH (11:38)
[2017-09-26] MEDS: ATORVASTATIN 20 MG TABLET PO SCH (11:38)
[2017-09-26] MEDS: ASPIRIN 81 MG TABEC PO SCH (11:38)
[2017-09-26] MEDS: ATENOLOL 25 MG TABLET PO SCH (11:38)
[2017-09-26] MEDS: TAMSULOSIN HCL 0.4 MG CAP.ER.24H PO SCH (11:40)
[2017-09-26] MEDS ORDERED: MAGNESIUM HYDROXIDE 30 ML UDC PO PRN (16:13)
[2017-09-26] MEDS: SENNOSIDES/DOCUSATE SODIUM UD CAPSULE PO SCH (16:20)
[2017-09-26] MEDS ORDERED: MAGNESIUM HYDROXIDE 30 ML UDC PO ONE (16:29)
[2017-09-27] MEDS: ACETAMINOPHEN 325 MG TAB PO SCH ×4 (05:53→23:01)
[2017-09-27] MEDS: LEVOTHYROXINE SODIUM 100 MCG TABLET PO SCH (05:54)
[2017-09-27] MEDS: PANTOPRAZOLE SODIUM 40 MG TABLET PO SCH (06:04)
[2017-09-27] MEDS: BIOFREEZE TOP SCH ×4 (06:05→23:31)
[2017-09-27] MEDS: NOVOLOG FLEXPEN (INSULIN ASPART) 100 UNITS/ML SQ SCH ×3 (07:44→17:49)
[2017-09-27] MEDS: ATORVASTATIN 20 MG TABLET PO SCH (09:38)
[2017-09-27] MEDS: CIPROFLOXACIN HCL 500 MG TABLET PO SCH ×2 (09:38→21:55)
[2017-09-27] MEDS: ASPIRIN 81 MG TABEC PO SCH (09:38)
[2017-09-27] MEDS: TAMSULOSIN HCL 0.4 MG CAP.ER.24H PO SCH (09:38)
[2017-09-27] MEDS: ATENOLOL 25 MG TABLET PO SCH (09:38)
[2017-09-27] MEDS: SENNOSIDES/DOCUSATE SODIUM UD CAPSULE PO SCH (09:38)
[2017-09-27] MEDS: ENOXAPARIN 40 MG/0.4 ML SYR SQ SCH (09:38)
[2017-09-27] MEDS: MIGLITOL PO SCH ×3 (09:40→18:31)
[2017-09-27] MEDS: GLIMEPIRIDE 2 MG TABLET PO SCH (09:49)
[2017-09-28] MEDS: LEVOTHYROXINE SODIUM 100 MCG TABLET PO SCH (06:07)
[2017-09-28] MEDS: PANTOPRAZOLE SODIUM 40 MG TABLET PO SCH (06:07)
[2017-09-28] MEDS: ACETAMINOPHEN 325 MG TAB PO SCH ×5 (06:07→22:43)
[2017-09-28] MEDS: BIOFREEZE TOP SCH ×4 (06:09→23:56)
[2017-09-28] MEDS: MIGLITOL PO SCH ×3 (07:53→20:41)
[2017-09-28] MEDS: GLIMEPIRIDE 2 MG TABLET PO SCH (07:54)
[2017-09-28] MEDS: NOVOLOG FLEXPEN (INSULIN ASPART) 100 UNITS/ML SQ SCH ×3 (08:04→20:39)
--- NOTE | 2017-09-28 09:55 | Rehab Evaluation ---
Patient Information - Patient Information Diagnosis: Weakness due to dehydration, UTI Ordered Treatment: PT Evaluate and Treat Status: Initial Evaluation Surgery: No Past Medical/Surgical Hx: PAST MEDICAL/SURGICAL HISTORY Past Surgical History bilateral cataracts temporal artery biopsy...negative PMH - Respiratory Hx Respiratory Disorders Yes Hx Pneumonia Yes PMH - Cardiovascular Hx Cardiovascular Disorders Yes Hx Heart Attack Yes Comment: High cholesterol PMH - Neuro Hx Neurological Disorders No PMH - GI Hx Gastrointestinal Disorders Yes Hx Gastroesophageal Reflux Yes PMH - Hx Genitourinary Disorders Yes Hx Prostate Problems Yes: cancer, shots when psa elevated PMH - Endocrine Hx Endocrine Disorders Yes Hx Diabetes Yes Hx Thyroid Disease Yes PMH - Musculoskeletal Hx Musculoskeletal Disorders Yes Hx Arthritis Yes PMH - Psych Hx Psychiatric Problems No PMH - Hematology/Oncology Hx Hematology/Oncology Yes Disorders Hx Cancer Yes: prostate, skin Hx Chemotherapy Yes Premorbid Status: Detail (The patient is developmentally delayed and lives with his sister. He has 2 steps at the entrance and family assists him with these. They are planning to install a ramp. His sister coompletes all of his self care including bathing, dressing, grooming and hygeine. He is able to feed himself. He ambulates with a 2 wheeled walker and is Independent with bed mobility at home.) Social History: Detail (The patient has a supportive family and will be staying with his sister whose home is equipped with a ramp and galilea lift.) Precautions: [place], Fall - Time With Patient Total Time Spent With Patient (Min): 20 Treatment Procedures: Detail (Initial Evaluation.) Subjective Information - Subjective Information Per Patient (The patient is nonverbal, however he does communicate well nonverbally. When asked if he had pain in his knees, the patient shook his head no. The patient did occasionally moan with L LE weight bearing when ambulating.) Objective Data - Mental Status Patient Orientation: Person (Unable to fully assess mentaion due to the patient is nonverbal. The patient appropriately follows simple commands. The patient occasionally reaches for therapists and laughs.) - Visual Perception Appears within normal limits for therapeutic activities - ROM Within normal limits (The patient's LE AROM is WFL. The patient is able to flex both knee at least 90 degrees and extend to 0 to -5 degrees of extension.) - Strength/Tone Within normal limits (Not able to fully assess LE strength due to patient's mentation and inability to understand the use of resistance for manual muscle testing. The patient's LE strength is functional ie: he is able to ambulate and use LE's for sit to stand transfer.) - Bed Mobility Needs Assist (Not assessed since the patient was up in a chair. On 09/27 when the patient was on inpatient status, the patient aceived supine to sit independently.) - Transfers Independent (CG/ supervision for safety only for sit to stand) - Balance Balance Sitting: Good Balance Standing: Fair (The patient used walker for support in standing.) - Gait Detail (The patient ambulated with 2 wheeled walker with CG of 1 for safety only and verbal cues to keep hands on walker and not grab therapist, a distance of 50 feet x 1 with occasional moans when weight bearing on L LE.) - Special Tests Yes (Inspection: B knees have increased edema left side greater then right but less edema was noted compared to inpatient stay. The patient's knees were no longer warm to touch.) Therapy Assessment - Therapy Assessment Detail (The patient was able to acheive mobility with supervison/CG for safety only. The patient was able to ambulate short distances with occasional complaints of pain. The patient's mobilty is much improved since inpatient stay due to a decrease in LE pain complaints. Feel the patient will be ready for discharge to home in 1 to 2 days from a mobility standpoint.) Problem List - Problem List Physical Therapy Problem List: Detail (1)limited ambulation distance 2) Occasional complaints of pain with weight bearing of the L LE) Goals - Goals Physical Therapy Goals: 1) The patient will ambulate a distance of 80 to 100 feet with wheeled walker and supervision for safety. 2) The patient's family will be independent and safe with guarding/supervising the patient during transfers and ambulation. Prognosis - Prognosis Good (Good for return to home environment with supervision of family.) Plan - Plan Physical Therapy Plan: PT 1-2 times a day until discharge from [facility] for gait training and mobility.
[2017-09-28] MEDS: ASPIRIN 81 MG TABEC PO SCH (10:05)
[2017-09-28] MEDS: ATENOLOL 25 MG TABLET PO SCH (10:05)
[2017-09-28] MEDS: SENNOSIDES/DOCUSATE SODIUM UD CAPSULE PO SCH (10:05)
[2017-09-28] MEDS: CIPROFLOXACIN HCL 500 MG TABLET PO SCH ×2 (10:05→21:44)
[2017-09-28] MEDS: ATORVASTATIN 20 MG TABLET PO SCH (10:05)
[2017-09-28] MEDS: TAMSULOSIN HCL 0.4 MG CAP.ER.24H PO SCH (10:06)
[2017-09-28] MEDS: ENOXAPARIN 40 MG/0.4 ML SYR SQ SCH (10:06)
--- NOTE | 2017-09-28 13:43 | Rehab Evaluation ---
Patient Information - Patient Information Diagnosis: Weakness due to dehydration, UTI Ordered Treatment: OT Evaluate and Treat Status: Initial Evaluation Surgery: No Past Medical/Surgical Hx: PAST MEDICAL/SURGICAL HISTORY Past Surgical History bilateral cataracts temporal artery biopsy...negative PMH - Respiratory Hx Respiratory Disorders Yes Hx Pneumonia Yes PMH - Cardiovascular Hx Cardiovascular Disorders Yes Hx Heart Attack Yes Comment: High cholesterol PMH - Neuro Hx Neurological Disorders No PMH - GI Hx Gastrointestinal Disorders Yes Hx Gastroesophageal Reflux Yes PMH - Hx Genitourinary Disorders Yes Hx Prostate Problems Yes: cancer, shots when psa elevated PMH - Endocrine Hx Endocrine Disorders Yes Hx Diabetes Yes Hx Thyroid Disease Yes PMH - Musculoskeletal Hx Musculoskeletal Disorders Yes Hx Arthritis Yes PMH - Psych Hx Psychiatric Problems No PMH - Hematology/Oncology Hx Hematology/Oncology Yes Disorders Hx Cancer Yes: prostate, skin Hx Chemotherapy Yes Premorbid Status: Detail (The patient is developmentally delayed and lives with his sister. He has 2 steps at the entrance and family assists him with these. They are planning to install a ramp. His sister completes all of his self care including bathing, dressing, grooming and hygeine. He is able to feed himself. He ambulates with a 2 wheeled walker and is Independent with bed mobility at home.) Social History: Detail (The patient has a supportive family and will be staying with his sister whose home is equipped with a ramp and galilea lift.) Precautions: [place], Fall - Time With Patient Total Time Spent With Patient (Min): 30 Treatment Procedures: Detail (OT eval low complexity) Subjective Information - Subjective Information Other (Per siblings) Objective Data - Pain Pain Present: Yes (Unable to formally assess, pt c/o knee pain during ambulation.) - Mental Status Patient Orientation: Person (Pt responds to name and is able to follow some commands although he is non-verbal. He does become agitated with stimulation.) - Visual Perception Other (Unable to formally assess.) - ROM Other (Unable to formally assess although appears functional.) - Strength/Tone Other (Unable to formally assess although appears functional.) - Coordination Other (Unable to formally assess although appears functional.) - Bed Mobility Independent (Ind with supine to sit and sit to supine.) - Transfers Independent (Pt able to perform sit to stand from chair Indly with tactile cues. ) - Balance Balance Sitting: Good Balance Standing: Fair - Sensation Intact - Gait Detail (Pt able to ambulate short distance with 2 wheeled walker and CG assist.) - ADL's/IADL's Detail (Pt is able to feed self. He is unable to perform grooming tasks although his sister completes this at home.) Therapy Assessment - Therapy Assessment Detail (Pt presents with decreased Ind with functional mobility needed to return home with family. His family was assisting with all self cares prior to admission.) Problem List - Problem List Physical Therapy Problem List: Detail (1)limited ambulation distance 2) Occasional complaints of pain with weight bearing of the L LE) Occupational Therapy Problem List: Detail (1. Decreased functional mobility needed for safe return home with family.) Goals - Goals Physical Therapy Goals: 1) The patient will ambulate a distance of 80 to 100 feet with wheeled walker and supervision for safety. 2) The patient's family will be independent and safe with guarding/supervising the patient during transfers and ambulation. Occupational Therapy Goals: 1. Pt will be safe with all functional mobility needed to return home with family. Prognosis - Prognosis Good Plan - Plan Physical Therapy Plan: PT 1-2 times a day until discharge from [facility] for gait training and mobility. Occupational Therapy Plan: OT 1-2 times per week to address functional mobility to allow safe return home.
--- NOTE | 2017-09-28 13:51 | Physical Therapy Tx Note ---
Physical Therapy Tx Note - Treatment Note Tolerated: Good Total Time Spent With Patient: 15 Physical Therapy Tx Note: Detail (The patient was up in chair eating when PT arrived. The patient pointed to bed. The patient was independent with sit to stand and ambulated with 2 wheeled walker a distance of 55 feet x 1. The patient was independent with sit to supine and scooting up in bed. The patient moaned in pain x 1 with weight bearing on R LE. The patient's sister was present for treatment and stated the patient was ambulating the same if not better then his previous functional level.) Physical Therapy Problem List: Detail (1)limited ambulation distance 2) Occasional complaints of pain with weight bearing of the L LE) Physical Therapy Goals: 1) The patient will ambulate a distance of 80 to 100 feet with wheeled walker and supervision for safety. 2) The patient's family will be independent and safe with guarding/supervising the patient during transfers and ambulation. Physical Therapy Plan: PT 1-2 times a day until discharge from [facility] for gait training and mobility.
--- NOTE | 2017-09-28 14:16 | Discharge Summary ---
Providers Discharge Summary Date: 09/28/17 Date of admission: 09/25/17 16:00 Expected Date of Discharge: 09/29/17 Attending physician: LISA EUCEDA Primary care physician: ROMAIN BUTTERFIELD Physical Exam - Vital Signs Vital Signs: Vital Signs - Last 24 Hrs Temp Pulse Resp BP BP Pulse Ox 09/28/17 09:43 97.3 F L 130/77 09/28/17 08:00 97.3 F L 57 L 18 130/77 97 09/27/17 19:52 97.4 F L 61 16 110/60 96 - General General Appearance: Alert, Cooperative, No acute distress - Head Head exam: Normal inspection - ENT ENT exam: Normal exam, Mucous membranes moist, Normal external ear exam, Normal orophraynx, TM's normal bilaterally - Neck Neck exam: Normal inspection, Full ROM. negative: Tenderness - Respiratory Respiratory exam: Normal lung sounds bilaterally. negative: Respiratory distress - Cardiovascular Cardiovascular Exam: Regular rate, Normal rhythm, Normal heart sounds - GI/Abdominal GI/Abdominal exam: Soft, Normal bowel sounds. negative: Tenderness - Back Back exam: Reports: Normal inspection, Full ROM. Denies: Muscle spasm, Rash noted, Tenderness - Neurological Neurological exam: Alert, Reflexes normal - Psychiatric Psychiatric exam: Normal affect, Normal mood Hospitalization - Hospitalization Admission Diagnosis: Deconditioning due to UTI & dehydration - Problem List (1) Weakness generalized Current Visit: No Status: Acute Base Code: R53.1 - WEAKNESS Comment: - improving. -will plan to discharge home tomorrow. He lives with sister who is primary cutter and presser. -follow up with Dr. Verdin, [facility] (2) Full code status Current Visit: No Status: Acute Base Code: Z78.9 - OTHER SPECIFIED HEALTH STATUS Comment: 09/28/17- patient is full code - Hospitalization Course Disposition: Home, Self-Care Reason For Discharge/Transfer: Medical Stability Hospital Course: 87yo male admitted to [facility] for deconditioning. He has history of MR since childhood and is nonverbal. Sister is his cutter and presser. He was admitted to [facility] for weakness and dehydration. Sister seemed to feel he was having some difficulty walking. She thought he seemed painful in his knees and hips. Both were XR showing arthritis but nothing acute. The dehydration resolved with IV fluids and patient progressed to tolerating clear fluids. He did see some improvement in his generalized weakness with starting tylenol and ibuprofen, but was still below baseline so was admitted to to continue therapy. 09/26/17- Patient resting comfortably in chair with family. Patient's sister says today he seems more like himself. He has been up with assistance and walker to the bathroom several times. He is not seeming as painful with ambulation. He is smiling, laughing and appetite has improved. He will continue to work with PT/OT with plan to go home with sister. 09/28/17- Patient is resting comfortably. He has been up with PT/OT and is doing well. Not needing any assistance and therapy does not feel he needs further therapy pcp: Dr. Nila sandy [facility] Abnormal Labs: Abnormal Lab Results 09/25/17 09/25/17 09/26/17 Range/Units 17:30 22:09 07:30 POC Glucose 204 H 181 H 183 H (70-110) mg/dL 09/26/17 09/26/17 09/26/17 Range/Units 11:35 17:00 22:27 POC Glucose 124 H 159 H 116 H (70-110) mg/dL 09/27/17 09/27/17 09/27/17 Range/Units 07:44 11:30 17:20 POC Glucose 123 H 130 H 231 H (70-110) mg/dL 09/27/17 09/28/17 09/28/17 Range/Units 22:09 08:10 11:47 POC Glucose 163 H 130 H 154 H (70-110) mg/dL Condition at Discharge: (2) Stable Discharge Medications - Discharge Medications Home Medications: Ambulatory Orders Aspirin [Adult Low Dose Aspirin EC] 81 mg PO DAILY 05/14/16 [Last Taken 05/14/16 ] Atenolol [Tenormin] 25 mg PO DAILY 05/14/16 [Last Taken 05/14/16] Atorvastatin Calcium [Lipitor] 20 mg PO DAILY 05/14/16 [Last Taken 05/13/16] Glimepiride [Amaryl] 8 mg PO DAILY 05/14/16 [Last Taken 05/14/16] Levothyroxine Sodium [Synthroid] 100 mcg PO DAILY 05/14/16 [Last Taken 05/14/16] Miglitol [Glyset] 50 mg PO TID 05/14/16 [Last Taken 05/13/16] Omeprazole [Prilosec] 20 mg PO DAILY 05/14/16 [Last Taken 05/14/16] Tamsulosin HCl [Flomax] 0.4 mg PO DAILY 05/14/16 [Last Taken 05/13/16] Ibuprofen [Motrin] 400 mg PO Q6H PRN #30 tablet 09/25/17 [Last Taken Unknown] Discharge Plan - Discharge Instructions Activity at Discharge: As Per Physical Therapy Diet at Discharge: Regular Diet Additional Instructions: follow up with [facility] in 7-10 days Resume home medications Please call with any questions or concerns Return to ED for new or worsening symptoms Quality Measures - Quality Measures Quality Measures: Advance Directives, Documentation of Current Medications in Medical Record, Elder Maltreatment Screen and Follow-Up Plan, Screening for High Blood Pressure and F/U Documented - Current Medications Quality Measure: Measure #130: Documentation of Current Medications Documentation of Current Medications: <Current Medications Documented/Reviewed> [G8466] - Blood Pressure Screening Quality Measure: Screening for High Blood Pressure and Follow-Up Documented Does Patient Have Any of the Following: Active Dx of HTN Blood Pressure Classification: Pre-Hypertensive BP Reading Systolic Measurement: 130 Diastolic Measurement: 77 Screening for High Blood Pressure: Patient Exclusion, Hx of HTN [G9744] - Advance Directives Quality Measure: Measure #47: Care Plan Advance Directives Established: No Advance Directives Information Provided To Patient: Declined Advance Directives on File: No Living Will: No Power of Golf Cart Assembler: Yes Power of Golf Cart Assembler Name: REZA WOODALL Advance Care Planning: <Care Plan/Decision Maker Documented; Discussed & Documented> [[id number]] - Elder Abuse Suspicion Index Screening: Elder Abuse Suspicion Index Screening Rely on people for bathing, dressing, shopping, banking, etc: Yes Prevented from getting food, clothes, medication, etc: No Made to feel shamed or threatened by someone: Did Not Answer Forced to sign papers or use money against will: Did Not Answer Feel afraid, touched in ways not wanted or hurt physically: Did Not Answer Poor eye contact, withdrawn, malnourished, cuts or bruises: No Screening Result: Negative result EASI Reference Information: Elpidio ESTES, Mary Beth C, Magalie D, Alec Emmanuel.Development and validation of a tool to assist physicians identification of elder abuse: The Elder Abuse Suspicion Index (EASI ). Journal of Elder Abuse and Neglect, 2008; 20 (3): 276-300. - Elder Maltreatment Screen Quality Measures: Elder Maltreatment Screen and Follow-Up Plan Elder Maltreatment Screen: <Negative, No Follow-Up Plan Required> [G8734]
[2017-09-29] MEDS: PANTOPRAZOLE SODIUM 40 MG TABLET PO SCH (06:38)
[2017-09-29] MEDS: ACETAMINOPHEN 325 MG TAB PO SCH ×2 (06:38→13:19)
[2017-09-29] MEDS: LEVOTHYROXINE SODIUM 100 MCG TABLET PO SCH (06:38)
[2017-09-29] MEDS: BIOFREEZE TOP SCH ×2 (06:38→13:18)
[2017-09-29] MEDS: GLIMEPIRIDE 2 MG TABLET PO SCH (08:07)
[2017-09-29] MEDS: NOVOLOG FLEXPEN (INSULIN ASPART) 100 UNITS/ML SQ SCH ×2 (08:11→13:18)
[2017-09-29] MEDS: MIGLITOL PO SCH ×2 (08:14→13:18)
[2017-09-29] MEDS: ENOXAPARIN 40 MG/0.4 ML SYR SQ SCH (09:20)
[2017-09-29] MEDS: TAMSULOSIN HCL 0.4 MG CAP.ER.24H PO SCH (09:22)
[2017-09-29] MEDS: ATORVASTATIN 20 MG TABLET PO SCH (09:22)
[2017-09-29] MEDS: ATENOLOL 25 MG TABLET PO SCH (09:22)
[2017-09-29] MEDS: SENNOSIDES/DOCUSATE SODIUM UD CAPSULE PO SCH (09:22)
[2017-09-29] MEDS: ASPIRIN 81 MG TABEC PO SCH (09:22)
--- NOTE | 2017-09-29 11:30 | Occupational Therapy Tx Note ---
Occupational Therapy Tx Note - Treatment Note Occupational Therapy Treatment Note: Detail (Attempted mobility with pt, he appeared very fatigued and shook his head "no" when ask if he wanted to ambulate. Due to pt. having shower and being fatigued, OT will hold am treatment.) Occupational Therapy Problem List: Detail (1. Decreased functional mobility needed for safe return home with family.) Occupational Therapy Goals: 1. Pt will be safe with all functional mobility needed to return home with family. Occupational Therapy Plan: OT 1-2 times per week to address functional mobility to allow safe return home.
--- NOTE | 2017-09-29 12:57 | Swallow Evaluation ---
Swallow Evaluation - General Patient Information Date of Assessment: 09/29/17 Referral Date: 09/25/17 Date of Onset: 09/25/17 Admitting Diagnosis: Deconditioning, UTI Medical History: [facility] is significant for deconditioning and UTI. Diabetes, High Cholesterol, Cancer - skin and prostate. Patient is non-verbal with limited communication but does follow some one step commands Current Feeding Status: All oral Cognitive Status: Limited - oriented to self. Follows 1 step commands on occasion. Oral Motor Assessment - Lips Lips at Rest: Normal Function Lip Retraction: Normal Function Lip Protrusion: Normal Function - Tongue Tongue at Rest: Abnormal Function (Tongue appears large and has limited ROM. Patient frequently pushes tongue forward out of oral cavity. During mastication movement is restritcted.) Tongue Protrusion: Abnormal Function Tongue Elevation: Abnormal Function Tongue Lateralization: Abnormal Function - Velum Velum at Rest: Normal Function Velum Elevation: Normal Function - Additional Information Oral Sensitivity: Reduced Volitional Cough/Throat Clearing: Reduced Other Oral Motor Comment: Patient is edentulous and has been for some time per family. Swallow Assessment - Oral Preparatory Phase Phase - Liquid: Normal Function Phase - Puree: Normal Function Phase - Solid: Abnormal Function - Oral Phase Phase - Liquid: Abnormal Function (Reduced tongue movement likely inhibits BOT movement, difficult to determine bedside.) Phase - Puree: Normal Function Phase - Solid: Abnormal Function (Edentulous status with reduced tongue movement places patient at risk for poor solids management and oral residue. Family frequently cuts foods to less than 1/2 inch by 1/2 inch to accomodate this need.) - Pharyngeal Phase Phase - Liquid: Abnormal Function (Occasional cough on thin from edge of cup however timing appears unrelated due to the length of time (more than 10 seconds ) between initation of pharyngeal phase of swallow and cough.) Phase - Puree: Normal Function Phase - Solid: Normal Function (With soft solids.) Plan for Treatment - Diagnosis/Clinical Impression Diagnosis: Oral phase dysphagia. Clinical Impression: Patient presents with oral phase dysphagia as characterized by decreased oral containment, decreased ROM of tongue, decreased awareness of residue in oral cavity. Patient benefits from modified foods to a generally soft diet and supervision/assistance with intake to reduce risk for choking due to poor cognition. - Consistency Modification Consistency Modification: Soft Liquid Modification: Regular Medication Modification: Crushed in Puree - Behavior Modification Behavior Modification: Small Sips, Alternate Sips and Bites (Encouraged caregivers to offer drinks more frequently to clear oral residue.) - Additional Plan Details Videofluroscopic Swallow Study Ordered: No (Due to patient age, cognition and mild severity of symptoms. ) Diagnosis/Recommendation Discussed With: Family, Caregiver (Sister is primary caregiver. Provided education to sister in place of patient secondary to cognition. Discussed Dysphagia III diet (mechanical soft diet) given patient performance at the time of this evaluation. Encouraged consideration of home based speech-therapy to continue education into home environment regarding diet modification and behavior modification to reduce risk for aspiration.) Goals for Treatment - Additional Goal Detail Additional Goal Detail: No goals established due to evaluation only. Encouraged patient family to consider home care speech therapy to address remaining concerns.
--- NOTE | 2017-09-29 15:34 | Rehab Discharge Summary ---
Patient Information - Patient Information Diagnosis: Weakness due to dehydration, UTI Ordered Treatment: OT Evaluate and Treat Surgery: No Past Medical/Surgical Hx: PAST MEDICAL/SURGICAL HISTORY Past Surgical History bilateral cataracts temporal artery biopsy...negative PMH - Respiratory Hx Respiratory Disorders Yes Hx Pneumonia Yes PMH - Cardiovascular Hx Cardiovascular Disorders Yes Hx Heart Attack Yes Comment: High cholesterol PMH - Neuro Hx Neurological Disorders No PMH - GI Hx Gastrointestinal Disorders Yes Hx Gastroesophageal Reflux Yes PMH - Hx Genitourinary Disorders Yes Hx Prostate Problems Yes: cancer, shots when psa elevated PMH - Endocrine Hx Endocrine Disorders Yes Hx Diabetes Yes Hx Thyroid Disease Yes PMH - Musculoskeletal Hx Musculoskeletal Disorders Yes Hx Arthritis Yes PMH - Psych Hx Psychiatric Problems No PMH - Hematology/Oncology Hx Hematology/Oncology Yes Disorders Hx Cancer Yes: prostate, skin Hx Chemotherapy Yes Premorbid Status: Detail (The patient is developmentally delayed and lives with his sister. He has 2 steps at the entrance and family assists him with these. They are planning to install a ramp. His sister completes all of his self care including bathing, dressing, grooming and hygeine. He is able to feed himself. He ambulates with a 2 wheeled walker and is Independent with bed mobility at home.) Social History: Detail (The patient has a supportive family and will be staying with his sister whose home is equipped with a ramp and galilea lift.) Precautions: [place], [place] Objective Data - Pain Pain Present: Yes (Pt c/o knee pain during mobility. Unable to formally assess pain level due to impaired cognition.) - Mental Status Patient Orientation: Person (Pt is non-verbal but he responds to verbal commands.) - Visual Perception Other (Unable to formally assess.) - ROM Other (Unable to formally assess, per observation UE AROM is functional for his level of activity.) - Strength/Tone Other (Unable to formally assess, per observation UE strength is functional for his level of activity.) - Coordination Other (Unable to formally assess, per observation UE coordination is functional for his level of activity.) - Bed Mobility Independent (Ind with supine to sit and sit to supine.) - Transfers Needs Assist (CG assist for sit to stand for safety) - Balance Balance Sitting: Good Balance Standing: Fair - Sensation Intact - Gait Detail (Pt ambulating household distances with 2 wheeled walker and CG assist.) - ADL's/IADL's Detail (Pt able to feed self, other self cares performed by nursing and/or family.) Therapy Assessment - Therapy Assessment Detail (Pt has returned to premorbid level of Ind with functional mobility and ADLs.) Problem List - Problem List Physical Therapy Problem List: Detail (1)limited ambulation distance 2) Occasional complaints of pain with weight bearing of the L LE) Occupational Therapy Problem List: Detail (1. Decreased functional mobility needed for safe return home with family.) Goals - Goals Physical Therapy Goals: 1) The patient will ambulate a distance of 80 to 100 feet with wheeled walker and supervision for safety. 2) The patient's family will be independent and safe with guarding/supervising the patient during transfers and ambulation. Occupational Therapy Goals: Goal Met: 1. Pt will be safe with all functional mobility needed to return home with family. Prognosis - Prognosis Good Plan - Plan Physical Therapy Plan: PT 1-2 times a day until discharge from [facility] for gait training and mobility. Occupational Therapy Plan: Pt is discharged home with family. No further OT requested per family.
--- NOTE | 2017-10-02 11:41 | Rehab Discharge Summary ---
Patient Information - Patient Information Diagnosis: Weakness due to dehydration, UTI Ordered Treatment: PT Evaluate and Treat Surgery: No Past Medical/Surgical Hx: PAST MEDICAL/SURGICAL HISTORY Past Surgical History bilateral cataracts temporal artery biopsy...negative PMH - Respiratory Hx Respiratory Disorders Yes Hx Pneumonia Yes PMH - Cardiovascular Hx Cardiovascular Disorders Yes Hx Heart Attack Yes Comment: High cholesterol PMH - Neuro Hx Neurological Disorders No PMH - GI Hx Gastrointestinal Disorders Yes Hx Gastroesophageal Reflux Yes PMH - Hx Genitourinary Disorders Yes Hx Prostate Problems Yes: cancer, shots when psa elevated PMH - Endocrine Hx Endocrine Disorders Yes Hx Diabetes Yes Hx Thyroid Disease Yes PMH - Musculoskeletal Hx Musculoskeletal Disorders Yes Hx Arthritis Yes PMH - Psych Hx Psychiatric Problems No PMH - Hematology/Oncology Hx Hematology/Oncology Yes Disorders Hx Cancer Yes: prostate, skin Hx Chemotherapy Yes Premorbid Status: Detail (The patient is developmentally delayed and lives with his sister. He has 2 steps at the entrance and family assists him with these. They are planning to install a ramp. His sister completes all of his self care including bathing, dressing, grooming and hygeine. He is able to feed himself. He ambulates with a 2 wheeled walker and is Independent with bed mobility at home.) Social History: Detail (The patient has a supportive family and will be staying with his sister whose home is equipped with a ramp and galilea lift.) Precautions: [place], [place] Subjective Information - Subjective Information Per Patient (The patient was nonverbal however his complaints of knee pain were less ie: weight bearing and walking without wincing or whining in pain, no longer constantly rubbing knees.) Objective Data - Mental Status Patient Orientation: Person (Unable to fully assess due to patient is nonverbal. Patient follows simple commands and communicates with gestures and head shakes appropriately.) - ROM Within normal limits (The patient's LE AROM was WFL.) - Strength/Tone Within normal limits (The patient's LE strength was within functional limits, strength was not formally tested secondary to patient did not fully understand the use of resistance for strength testing.) - Bed Mobility Independent (The patient was independent with supine to and from sit and scooting up in bed.) - Transfers Independent (The patient was independent with sit to and from stand transfer.) - Balance Balance Sitting: Good Balance Standing: Fair (The patient required support of walker with ambulation.) - Gait Detail (The patient ambulated with 2 wheeled walker a distance of 60 to 50 feet x 1 with CG of 1 for safety. The patient's family observed patient ambulating and stated the patient was ambulating at his previous functional level if not better. The patient did not ambulate on stairs secondary he was going to sister' s home that had a ramp.) Therapy Assessment - Therapy Assessment Detail (The patient had returned to previous functional level per family . Further PT was not requested by family. A wheelchair was ordered.) Problem List - Problem List Physical Therapy Problem List: Detail (1)limited ambulation distance 2) Occasional complaints of pain with weight bearing of the L LE) Occupational Therapy Problem List: Detail (1. Decreased functional mobility needed for safe return home with family.) Goals - Goals Physical Therapy Goals: 1) The patient will ambulate a distance of 80 to 100 feet with wheeled walker and supervision for safety. GOAL PARTIALLY MET. 2) The patient's family will be independent and safe with guarding/supervising the patient during transfers and ambulation. GOAL MET. Occupational Therapy Goals: Goal Met: 1. Pt will be safe with all functional mobility needed to return home with family. Plan - Plan Physical Therapy Plan: The patient was discharged to home. No further PT requested per family. Occupational Therapy Plan: Pt is discharged home with family. No further OT requested per family.
== END 2017-09-29 16:44 | disposition home or self-care (01) | DRG 690 ==
LOC: UNDOADMIN 16:00 → MEDSURG 16:00
PROVIDERS: ADMIT Internal Medicine; ATTEND Internal Medicine
DX: N39.0 Urinary tract infection, site not specified (principal); E86.0 Dehydration; F79 Unspecified intellectual disabilities; I25.2 Old myocardial infarction; I10 Essential (primary) hypertension; Z85.46 Personal history of malignant neoplasm of prostate; E11.9 Type 2 diabetes mellitus without complications; E03.9 Hypothyroidism, unspecified; M19.90 Unspecified osteoarthritis, unspecified site; Z85.828 Personal history of other malignant neoplasm of skin; Z79.4 Long term (current) use of insulin
CPT/HCPCS: 36416; 82948; 97530; 99306; 99316; J1650

== ENCOUNTER 2019-05-13 15:34 | Observation (INO) | payer MEDICARE, MEDICAID ==
--- NOTE | 2019-05-13 15:46 | Emergency Department Record ---
History of Present Illness - General Chief Complaint: Fall Injury Stated Complaint: FALL INJURY Time Seen by Provider: 05/13/19 15:40 Source: Patient, Family, EMS Mode of Arrival: Stretcher Limitations: No limitations - History of Present Illness Initial Comments: 88 yo male presents by EMS. He is cognitively impaired but at his base line. His family provides the history. He was getting in a car on Thursday two days ago. They report he just fell into the side without a severe impact. He did not his his head. He has not wanted to walk since then. He has pain in his left leg that seems worse at the knee and ankle. No other changes in his he alth. He is otherwise at his baseline. MD Complaint: Fall -: Days(s) (2 days ago.) When Fall Occurred: # Days [employer] (2) Fall Witnessed: Yes, by family Place Fall Occurred: Other (Parking lot) Loss of Consciousness: None Prolonged Down Time?: No Symptoms Prior to Fall: None Location - Extremities: Right: Knee, Lower Leg, Ankle, Foot Severity: Moderate Quality: Aching Context: Other (Hx of ) Associated Symptoms: Other - [place] Coma Scale Eye Response: (4) Open spontaneously Motor Response: (6) Obeys commands Verbal Response: (5) Oriented [place] Total: 15 - Related Data Home Medications Medication Instructions Recorded Confirmed Last Taken Liraglutide [Victoza 3-Mickey] 1.2 mg SQ DAILY 05/13/19 05/13/19 Unknown Metformin HCl [Metformin HCl ER] 500 mg PO BID 05/13/19 05/13/19 Unknown Miglitol 100 mg PO DAILY 05/13/19 05/13/19 Unknown Allergies Allergy/AdvReac Type Severity Reaction Status Date / Time metformin Allergy DIARRHEA Verified 09/22/17 13:35 Review of Systems ROS unobtainable: Due to mental status Constitutional: Denies: Chills, Fever, Malaise, Weakness Eyes: Denies: Eye discharge ENT: Denies: Congestion, Throat pain Respiratory: Denies: Cough Cardiovascular: Denies: Chest pain, Palpitations, Syncope Endocrine: Denies: Fatigue Gastrointestinal: Denies: Abdominal pain, Diarrhea, Nausea, Vomiting Genitourinary: Denies: Dysuria, Frequency, Hematuria Musculoskeletal: Reports: Arthralgia Skin: Reports: Bruising Neurological: Denies: Headache, Weakness Psychiatric: Denies: Anxiety Hematological/Lymphatic: Denies: Easy bleeding, Easy bruising Past Medical History - SOCIAL HISTORY Smoking Status: Never smoker - RESPIRATORY Hx Respiratory Disorders: Yes Hx Pneumonia: Yes - CARDIOVASCULAR Hx Cardio Disorders: Yes Hx Heart Attack: Yes Comment:: High cholesterol - NEURO Hx Neuro Disorders: No - GI Hx GI Disorders: Yes Hx Reflux: Yes - Hx Genitourinary Disorders: Yes Hx Prostate Problems: Yes (cancer, shots when psa elevated) - ENDOCRINE Hx Diabetes: Yes - MUSCULOSKELETAL Hx Musculoskeletal Disorders: Yes Hx Arthritis: Yes - PSYCH Hx Psych Problems: No - HEMATOLOGY/ONCOLOGY Hx Hematology/Oncology Disorders: Yes Hx Cancer: Yes (prostate, skin) Family Medical History Hx Cancer: Brother/Sister Hx Heart Disease: Father Hx Stroke: Brother/Sister *Stroke Comment: sister had mini stroke Physical Exam - General General Appearance: Alert, Cooperative, No acute distress, Other (some minimal verbal skills) Limitations: Language barrier - Head Head exam: Atraumatic, Normocephalic, Normal inspection - Eye Eye exam: Normal appearance, PERRL. negative: Conjunctival injection, Scleral icterus - ENT ENT exam: Normal exam, Mucous membranes moist Ear exam: Normal external inspection Nasal Exam: Normal inspection Mouth exam: Normal external inspection - Neck Neck exam: Normal inspection, Full ROM. negative: Tenderness - Respiratory Respiratory exam: Normal lung sounds bilaterally. negative: Accessory muscle use, Chest wall tenderness, Decreased breath sounds, Prolonged expiratory, Respiratory distress, Rhonchi, Stridor, Wheezes - Cardiovascular Cardiovascular Exam: Regular rate, Normal rhythm, Normal heart sounds - GI/Abdominal GI/Abdominal exam: Soft. negative: Distended, Guarding, Rebound, Rigid, Tenderness - Rectal Rectal exam: Deferred - exam: Deferred - Extremities Extremities exam: Joint swelling, Tenderness. negative: Normal inspection Image of Full Body: 1 - mild knee swelling and tendernes, pain with ROM 2 - minimal swelling, tenderness to palpation - Back Back exam: Denies: CVA tenderness (R), CVA tenderness (L), Tenderness - Neurological Neurological exam: Alert - Psychiatric Psychiatric exam: Normal affect (at his baseline), Normal mood. negative: Agitated, Anxious - Skin Skin exam: Other (bruise over left knee) Course - Reevaluation(s) Reevaluation #1: 05/13/19 17:06 The XR of the Hip was reviewed. Normal alignment. No fracture or dislocation. The XR of the knee demonstrated a small effusion, severe tricompartmental OA, no fracture or dislocation The XR of the ankle was negative for fracture 05/13/19 17:19 The results were discussed The patient is not able to bear weight The family states they are unable to safely care for him when he is not able to bear weight or use his walker His knee is the most painful. I recommend CT then discuss admission due to unable to bear weight or care independently for himself 05/13/19 18:[address] is negative for fracture Given the pain I recommend admission for safety, PT, and pain control Medical Decision Making - Lab Data Result diagrams: 05/13/19 22:25 05/13/19 22:25 Disposition Disposition: Admit Clinical Impression: Knee sprain, Unable to ambulate Disposition: Still a Patient at [facility] Decision to Admit: Admit from ER Decision to Admit Date: 05/13/19 Decision to Admit Time: 18:43 Condition: (2) Stable Time of Disposition: 18:43 Quality - Quality Measures Quality Measures: N/A - Blood Pressure Screening Does Patient Have Any of the Following: No Blood Pressure Classification: Normal BP Reading Systolic Measurement: 102 Diastolic Measurement: 61 Screening for High Blood Pressure: < Normal BP, F/U Not Required > [[id number]]
--- NOTE | 2019-05-13 16:48 | RADIOLOGY REPORT ---
EXAMINATION: Right Ankle, Complete Minimum Three Views EXAM DATE: 05/13/2019 4:30 PM TECHNIQUE: AP, lateral, and oblique INDICATION: fall 2 days ago. leg pain COMPARISON: None ENCOUNTER: Initial FINDINGS/IMPRESSION: Normal alignment. No fracture or dislocation. Generalized osteopenia. Unremarkable soft tissues. Athe rosclerotic arterial calcification. Dictated by: Eve Marquez MD on 05/13/2019 4:42 PM. .
--- NOTE | 2019-05-13 16:53 | RADIOLOGY REPORT ---
EXAMINATION: Right Hip Single View EXAM DATE: 05/13/2019 4:30 PM TECHNIQUE: AP INDICATION: fall 2 days ago. leg pain COMPARISON: None ENCOUNTER: Initial FINDINGS/IMPRESSION: Normal alignment. No fracture or dislocation. Mild degenerative changes of the right hip. Unremarkabl e soft tissues. Dictated by: Eve Marquez MD on 05/13/2019 4:47 PM. .
--- NOTE | 2019-05-13 16:55 | RADIOLOGY REPORT ---
EXAMINATION: Right Knee, Three Views EXAM DATE: 05/13/2019 4:30 PM TECHNIQUE: Frontal, lateral, and oblique INDICATION: fall 2 days ago. leg pain COMPARISON: 09/24/2017 ENCOUNTER: Initial FINDINGS/IMPRESSION: Small joint effusion. Normal alignment. No fracture or dislocation. Atherosclerotic arterial calcific ation. Severe tricompartmental osteoarthritis. Dictated by: Eve Marquez MD on 05/13/2019 4:51 PM. .
[2019-05-13] MEDS ORDERED: ACETAMINOPHEN 1,000 MG/100 ML BTL IVPB ONE (17:18)
--- NOTE | 2019-05-13 18:34 | CT SCAN REPORT ---
EXAMINATION: CT Lower Extremity right knee without IV Contrast EXAM DATE: 05/13/2019 6:06 PM TECHNIQUE: Standard protocol CT images were obtained through the Right knee without intravenous contr ast. Sagittal and coronal images were reconstructed. INDICATION: knee pain, unable to bear weight, neg XR COMPARISON: 05/13/2019 ENCOUNTER: Not applicable FINDINGS: Normal bony architecture. Severe arthrosis with tricompartment narrowing medial lateral and retropate llar spurring. 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 Joint effusion. No acute fracture or dislocation. Vascular calcifications. IMPRESSION: 1. Severe arthrosis, no acute fracture or dislocation. Follow-up MRI if symptoms persist 2. Synovial osteochondromatosis 3. Joint effusion Dictated by: José Luis Yap MD on 05/13/2019 6:28 PM. .
[2019-05-13] MEDS ORDERED: 0.9 % SODIUM CHLORIDE 1000ML 1,000 ML IV ONE (21:42)
[2019-05-13] MEDS: ACETAMINOPHEN 1,000 MG/100 ML BTL IVPB SCH (22:18)
[2019-05-13] MEDS: METFORMIN ER HCL 500 MG TAB.ER.24H PO SCH (22:23)
[2019-05-13] MEDS: LIRAGLUTIDE INJ SCH (22:30)
[2019-05-13 22:31] LABS: ABSOLUTE NEUTROPHIL COUNT 6.07; BASO % 0.3 % (0-6); EOS % 0.1 % (0-6); GRAN % 59.9 % (47-80); HEMOGLOBIN 12.6 gm/dl (14.0-18.0); LYMPH % 18.7 % (16-45); MEAN CORPUSCULAR HGB CONC 31.5 g/dl (32-36); MEAN PLATELET VOLUME 10.7 fl (7.4-10.4); PLATELET COUNT 194 K/uL (130-400); RED BLOOD COUNT 4.35 M/uL (4.40-5.70); RED CELL DISTRIBUTION WIDTH 13.6 % (11.5-14.5); WHITE BLOOD COUNT W/O DIFF 10.1 K/uL (4.2-12.2)
[2019-05-13] MEDS: MIGLITOL PO SCH (22:31)
[2019-05-13 22:33] LABS: MEAN CORPUSCULAR HEMOGLOBIN 28.9 pg (27-33)
[2019-05-13 22:49] LABS: ALB/GLOB RATIO 1.1 (1.1-1.8); ALBUMIN 3.1 g/dL (4.0-5.0); BILIRUBIN,TOTAL 0.8 mg/dL (0.2-1.0); CREATININE 1.3 mg/dL (0.7-1.2)
[2019-05-14] MEDS: ACETAMINOPHEN 1,000 MG/100 ML BTL IVPB SCH ×4 (04:34→22:35)
[2019-05-14] MEDS ORDERED: ZINC OXIDE 28.35 GM TUBE TOP ONE (06:24)
[2019-05-14] MEDS: PANTOPRAZOLE SODIUM 40 MG TABLET PO SCH (07:16)
[2019-05-14] MEDS: LEVOTHYROXINE SODIUM 75 MCG TABLET PO SCH (11:11)
[2019-05-14] MEDS: TAMSULOSIN HCL 0.4 MG CAP.ER.24H PO SCH (11:13)
[2019-05-14] MEDS: ATENOLOL 25 MG TABLET PO SCH (11:13)
[2019-05-14] MEDS: METFORMIN ER HCL 500 MG TAB.ER.24H PO SCH ×2 (11:13→22:39)
[2019-05-14] MEDS: ASPIRIN 81 MG TABEC PO SCH (11:14)
[2019-05-14] MEDS: LIRAGLUTIDE INJ SCH (11:23)
[2019-05-14] MEDS: MIGLITOL PO SCH (11:29)
--- NOTE | 2019-05-14 12:31 | Rehab Evaluation ---
Patient Information - Patient Information Diagnosis: inability to ambulate due to leg pain Ordered Treatment: OT Evaluate and Treat Status: Initial Evaluation Surgery: No History: Detail (Pt presented to ED on 05/13/19. Per family he fell while getting into the car 2 days ago and injured his right knee. He has been unable to ambulate since then.) Past Medical/Surgical Hx: PAST MEDICAL/SURGICAL HISTORY Past Surgical History bilateral cataracts temporal artery biopsy...negative PMH - Respiratory Hx Respiratory Disorders Yes Hx Pneumonia Yes PMH - Cardiovascular Hx Cardiovascular Disorders Yes Hx Heart Attack Yes Comment: High cholesterol PMH - Neuro Hx Neurological Disorders No Comment: cognitively impaired and non-verbal PMH - GI Hx Gastrointestinal Disorders Yes Hx Gastroesophageal Reflux Yes PMH - Hx Genitourinary Disorders Yes Hx Prostate Problems Yes: cancer, shots when psa elevated PMH - Endocrine Hx Endocrine Disorders Yes Hx Diabetes Yes Hx Thyroid Disease Yes PMH - Musculoskeletal Hx Musculoskeletal Disorders Yes Hx Arthritis Yes PMH - Psych Hx Psychiatric Problems No PMH - Hematology/Oncology Hx Hematology/Oncology Yes Disorders Hx Cancer Yes: prostate, skin Hx Chemotherapy Yes Premorbid Status: Detail (Pt is non verbal and therefore unable to give a history. Per previous documentation he lives with his sister who completes all of his self care. Per this report he was ambulatory with a 2 wheeled walker.) Precautions: [place], Fall, Other (impaired communication) - Time With Patient Total Time Spent With Patient (Min): 35 Treatment Procedures: Detail (OT eval low complexity) Subjective Information - Subjective Information Per Patient (Pt is non verbal. All history taken from nursing staff and previous evaluation dated 08/2017.) Objective Data - Pain Pain Present: Yes (Pt c/o right knee with mobility.) - Mental Status Patient Orientation: Person (Pt oriented to self and able to follow some commands. He is non verbal and requires repeated verbal and physical cues to participate in activities.) - Visual Perception Appears within normal limits for therapeutic activities - ROM Not within normal limits (Pt presents with decreased AROM throughout all extremities which appears to be his baseline.) - Strength/Tone Not within normal limits (Pt presents with decreased strength throughout all extremities which appears to be his baseline. He demonstrates functional strength for his previous level of activity.) - Coordination Other (Functional for patients level of activity.) - Bed Mobility Independent (Pt was Ind with supine to sit although he required moderate verbal encouragement.) - Transfers Needs Assist (Sit to stand from EOB and commode with verbal cues and mod assist x 1 to walker.) - Balance Balance Sitting: Good Balance Standing: Fair - Sensation Intact - Gait Detail (Pt able to take several steps from commode to recliner with walker and mod assist initially but after initial steps he was able to amb with min assist to steer walker around chair.) - ADL's/IADL's Detail (Pt able to eat Indly. Bathing and dressing tasks not formally assessed although family typically complete these activities for patient.) Therapy Assessment - Therapy Assessment Detail (Pt presents with right knee pain which is impairing his mobility.) Problem List - Problem List Occupational Therapy Problem List: Detail (1. Decreased functional mobility needed for safe return home. 2. Right knee pain.) Goals - Goals Occupational Therapy Goals: 1. Pt will be Ind with bed mobility and ambulating 10 feet with walker to allow safe return home. Prognosis - Prognosis Moderate Plan - Plan Occupational Therapy Plan: OT will continue 2-4 times per week until discharge. Pt may benefit from short rehab stay or home therapy to maximize his safety and Ind.
--- NOTE | 2019-05-14 12:56 | Occupational Therapy Tx Note ---
Occupational Therapy Tx Note - Treatment Note Tolerated: Fair Total Time Spent With Patient: 15 (gait) Occupational Therapy Treatment Note: Detail (S: Pt finished with lunch. He nodded "yes" when asked if he wanted to get back to bed. O: Sit to stand from recliner to walker with repeated verbal encouragement and CG assist. Pt able to amb 6 feet to EOB with 2 wheeled walker and CG assist as well as verbal encouragement. Pt sat to EOB safely and Indly. Sit to supine Indly with verbal encouragement and he was able to scoot up in bed Indly. A: Sit to stand with CG assist and able to amb several feet with walker and CG assist. Ind with bed mobility.) Occupational Therapy Problem List: Detail (1. Decreased functional mobility needed for safe return home. 2. Right knee pain.) Occupational Therapy Goals: 1. Pt will be Ind with bed mobility and ambulating 10 feet with walker to allow safe return home. Prognosis: Moderate Occupational Therapy Plan: OT will continue 2-4 times per week until discharge. Pt may benefit from short rehab stay or home therapy to maximize his safety and Ind.
[2019-05-15] MEDS: ACETAMINOPHEN 1,000 MG/100 ML BTL IVPB SCH ×4 (05:42→22:44)
[2019-05-15] MEDS: PANTOPRAZOLE SODIUM 40 MG TABLET PO SCH (07:33)
[2019-05-15] MEDS: METFORMIN ER HCL 500 MG TAB.ER.24H PO SCH ×2 (09:22→21:58)
[2019-05-15] MEDS: ASPIRIN 81 MG TABEC PO SCH (09:22)
[2019-05-15] MEDS: TAMSULOSIN HCL 0.4 MG CAP.ER.24H PO SCH (09:23)
[2019-05-15] MEDS: LEVOTHYROXINE SODIUM 75 MCG TABLET PO SCH (09:23)
[2019-05-15] MEDS: ATENOLOL 25 MG TABLET PO SCH (09:24)
[2019-05-15] MEDS: LIRAGLUTIDE INJ SCH (09:26)
[2019-05-15] MEDS: MIGLITOL PO SCH (10:00)
--- NOTE | 2019-05-15 10:51 | History & Physical ---
History of Present Illness - Date of Service Date of Service for History & Physical: 05/15/19 - History of Present Illness Admitting Diagnosis: Inability to ambute due to leg pain History of Present Illness: 88 yo male presented to [facility] ER with his sisters for knee pain s/p slip and fall a few days prior to the visit. Family denies he hit is head or any LOC. Pt has recently been refusing to bend or bare weight on right knee. Pt has baseline cognitive impairment, is non verbal and lives with sisters who are care givers. XR right hip, knee, ankle neg for acute fx- OA noted CT right leg neg for acute process, severe OA noted Admission for pain control and ADL assistance as pt lives with sisters in their 80s. Vitals and labs as documented below. 05/13/19 15:37 Temperature 97.7 F Pulse Rate 90 Respiratory 18 Rate Respiratory WNL Depth Respiratory WNL Effort Respiratory WNL Pattern Blood Pressure 102/61 Pulse Ox 96 Oxygen Delivery Room Air Method 05/13/19 05/13/19 22:25 22:25 WBC 10.1 RBC 4.35 L Hgb 12.6 L Hct 40.0 L MPV 10.7 H Absolute Neutrophils 6.07 Sodium 138 Potassium 4.4 Chloride 101 Carbon Dioxide 24.0 Anion Gap 13.0 BUN 23 Creatinine 1.3 H Estimated GFR 55 Random Glucose 126 H Calcium 9.0 Total Bilirubin 0.80 AST 16 ALT 19 Alkaline Phosphatase 60 Total Protein 6.0 L Albumin 3.1 L Globulin 2.9 Albumin/Globulin Ratio 1.1 05/14/19 Pt resing in bed, no acute distress, moving both legs with little difficulty. No bruising, hematoma or abrasions noted to legs or hips. Pt is non verbal, follows simple commands and appears to have mild tartative dyskinesia as his tongue rests in the partially out position, no teeth noted. Pt makes eye contact but does not maintain. Lungs CTA, heart RRR, no edema noted. Stage II pressure ulcer noted to sacral area. OT contacted for evaluation to assist staff with transfer care as pt is non verbal. Pt is able to ambulate to and from chair/bed with gait belt walker, and verbal instructions. Pt is not calling out in pain, is moving right and left leg in bed with no difficulty. Bearing wgt with slow gait. POC contact pt family, get baseline mobility status and assiste with PT/OT eval and POC. PCP Dr Verdin Travel Screening - Travel/Exposure Within Last 30 Days Have you traveled within the last 30 days?: No - Travel/Exposure Within Last Year Have you traveled outside the [place] in the last year?: No - Additonal Travel Details Have you been exposed to anyone with a communicable illness?: No Review of Systems Constitutional: Denies: Chills, Fever, Malaise, Weakness Eyes: Denies: Eye discharge ENT: Denies: Congestion, Throat pain Respiratory: Denies: Cough Cardiovascular: Denies: Chest pain, Palpitations, Syncope Endocrine: Denies: Fatigue Gastrointestinal: Denies: Abdominal pain, Diarrhea, Nausea, Vomiting Genitourinary: Denies: Dysuria, Frequency, Hematuria Musculoskeletal: Reports: Arthralgia Skin: Reports: Bruising Neurological: Denies: Headache, Weakness Psychiatric: Denies: Anxiety Hematological/Lymphatic: Denies: Easy bleeding, Easy bruising Past Medical History - SOCIAL HISTORY Smoking Status: Never smoker - RESPIRATORY Hx Respiratory Disorders: Yes Hx Pneumonia: Yes - CARDIOVASCULAR Hx Cardio Disorders: Yes Hx Heart Attack: Yes Comment:: High cholesterol - NEURO Hx Neuro Disorders: No - GI Hx GI Disorders: Yes Hx Reflux: Yes - Hx Genitourinary Disorders: Yes Hx Prostate Problems: Yes (cancer, shots when psa elevated) - ENDOCRINE Hx Diabetes: Yes - MUSCULOSKELETAL Hx Musculoskeletal Disorders: Yes Hx Arthritis: Yes - PSYCH Hx Psych Problems: No - HEMATOLOGY/ONCOLOGY Hx Hematology/Oncology Disorders: Yes Hx Cancer: Yes (prostate, skin) Family Medical History Hx Cancer: Brother/Sister Hx Heart Disease: Father Hx Stroke: Brother/Sister *Stroke Comment: sister had mini stroke H&P Meds/Allergies - Allergies Allergies: Allergies Allergy/AdvReac Type Severity Reaction Status Date / Time metformin Allergy DIARRHEA Verified 09/22/17 13:35 - Home Medications Home Medications Medication Instructions Recorded Confirmed Last Taken Liraglutide [Victoza 3-Mickey] 1.2 mg SQ DAILY 05/13/19 05/13/19 Unknown Metformin HCl [Metformin HCl ER] 500 mg PO BID 05/13/19 05/13/19 Unknown Miglitol 100 mg PO DAILY 05/13/19 05/13/19 Unknown - Active Medications Active Medications: Current Medications Aspirin (Ecotrin (Ec)) 81 mg PO DAILY [facility] Last Admin: 05/15/19 09:22 Dose: 81 mg Documented by: Atenolol (Tenormin) 25 mg PO DAILY [facility] Last Admin: 05/15/19 09:24 Dose: 25 mg Documented by: Acetaminophen (Ofirmev) 1,000 mg in 100 mls @ 400 mls/hr IVPB Q6H [facility] Last Infusion: 05/15/19 06:10 Dose: Infused Documented by: Levothyroxine Sodium (Synthroid) 100 mcg PO DAILY [facility] Last Admin: 05/15/19 09:23 Dose: 100 mcg Documented by: Metformin HCl (Glucophage Xr) 500 mg PO BID [facility] Last Admin: 05/15/19 09:22 Dose: 500 mg Documented by: Pantoprazole Sodium (Protonix) 40 mg PO DAILYAC [facility] Last Admin: 05/15/19 07:33 Dose: 40 mg Documented by: Patient Own Med: Liraglutide (Victoza ) 1 each INJ DAILY [facility] Last Admin: 05/15/19 09:26 Dose: 1 each Documented by: Patient Own Med: Miglitol ([place]) 100mg Tablet 1 each PO DAILY [facility] Last Admin: 05/14/19 11:29 Dose: 1 each Documented by: Tamsulosin HCl (Flomax) 0.4 mg PO DAILY [facility] Last Admin: 05/15/19 09:23 Dose: 0.4 mg Documented by: Physical Exam - Vital Signs Vital Signs: Vital Signs - Last 24 Hrs Temp Pulse Resp BP Pulse Ox 05/15/19 05:00 98.1 F 89 18 107/65 93 L 05/14/19 21:00 98.2 F 83 18 100/64 93 L 05/14/19 13:00 97.6 F 68 16 97/56 94 L - General General Appearance: Alert, Cooperative, No acute distress, Other (some minimal verbal skills) Limitations: Language barrier - Head Head exam: Atraumatic, Normocephalic, Normal inspection - Eye Eye exam: Normal appearance, PERRL. negative: Conjunctival injection, Scleral icterus - ENT ENT exam: Normal exam, Mucous membranes moist Ear exam: Normal external inspection Nasal Exam: Normal inspection Mouth exam: Other (tongue resting in partially in/out of mouth). negative: Tongue normal Teeth exam: Other (teeth missing) - Neck Neck exam: Normal inspection, Full ROM. negative: Tenderness - Respiratory Respiratory exam: Normal lung sounds bilaterally. negative: Accessory muscle use, Chest wall tenderness, Decreased breath sounds, Prolonged expiratory, Respiratory distress, Rhonchi, Stridor, Wheezes - Cardiovascular Cardiovascular Exam: Regular rate, Normal rhythm, Normal heart sounds Peripheral Pulses: 2+: Radial (R), Radial (L), Dorsalis Pedis (R), Dorsalis Pedis (L) - GI/Abdominal GI/Abdominal exam: Soft. negative: Distended, Guarding, Rebound, Rigid, Tenderness - Rectal Rectal exam: Deferred - exam: Deferred - Extremities Extremities exam: Joint swelling, Tenderness. negative: Normal inspection - Back Back exam: Denies: CVA tenderness (R), CVA tenderness (L), Tenderness - Neurological Neurological exam: Alert - Psychiatric Psychiatric exam: Normal affect (at his baseline), Normal mood. negative: Agitated, Anxious - Skin Skin exam: Other (pressure sore) Type of lesion: Other (pressure sore, sacral stage II) Description of rash: Erythematous Results - Labs Result Diagrams: 05/13/19 22:25 05/13/19 22:25 Labs Last 24 Hours: Laboratory Results - last 24 hr 05/14/19 05/14/19 05/14/19 11:38 18:03 22:00 POC Glucose 90 75 75 05/15/19 07:31 POC Glucose 79 VTE H&P Assessment - Risk for VTE Risk for VTE: Yes Risk Level: Moderate Risk Assessment Date: 05/15/19 Risk Assessment Time: 17:02 VTE Orders Placed or Will Be Placed: Yes Plan - Detailed Diagnosis and Plan (1) Knee sprain Current Visit: Yes Status: Acute Base Code: S83.90XA - SPRAIN OF UNSPECIFIED SITE OF UNSPECIFIED KNEE, INIT ENCNTR Comment: 05/14/19 -pt appears to have pain control with tylenol -OT evaluated and pt is able to ambulate with gait belt and walker to/from chair and bed -pt needs continued verbal cues during ambulation (2) Weakness generalized Current Visit: No Status: Acute Base Code: R53.1 - WEAKNESS Comment: 05/14/19 -pt needs constant verbal cueing to get out of bed, go to chair for meals and ba ck to bed -needs assistance repositing self in bed, needs simple instructions for turning -pt is refusing to ambulate into the restroom or in to the hallway (3) Unable to ambulate Current Visit: Yes Status: Resolved Base Code: R26.2 - DIFFICULTY IN WALKING, NOT ELSEWHERE CLASSIFIED Comment: 05/14/19 -pt is able to ambulate with gait belt and walker -EVAL by OT completed with therapist occupational provider (4) Pressure ulcer of sacral region, stage 2 Current Visit: Yes Status: Acute Base Code: L89.152 - PRESSURE ULCER OF SACRAL REGION, STAGE 2 Comment: 05/14/19 -stage II pressure ulcer to sacrum, andriy buttock healed ulcers noted -nursing to clean and dry area with soap and water, reposition freq (5) DVT prophylaxis Current Visit: No Status: Acute Base Code: [id number] - Comment: 05/14/19 Patient was at high risk with age and restricted mobility -lovenox 40mg SQ daily given for prophylaxis (6) Full code status Current Visit: No Status: Acute Base Code: Z78.9 - OTHER SPECIFIED HEALTH STATUS Comment: 05/14/19 patient is full code
[2019-05-15] MEDS ORDERED: NYSTATIN 15 GM POWDER TP ONE (16:49)
--- NOTE | 2019-05-15 17:15 | Physician Progress Note ---
Subjective - Date Date of Physician Progress Note: 05/15/19 - Subjective Subjective Comment: Pt continues to transfer to chair with gait belt and walker. Sisters x3 have arrived to visit. Reporting his unwillingness to ambulate since his recent fall, unwillingness to ambulate at home for exercise, and frequent habit of sitting in his chair at home with little to no self repositioning. Objective - Vital Signs Vital Signs: Vital Signs - Last 24 Hrs Temp Pulse Resp BP Pulse Ox 05/15/19 14:12 82 16 120/65 94 L 05/15/19 05:00 98.1 F 89 18 107/65 93 L 05/14/19 21:00 98.2 F 83 18 100/64 93 L - General General Appearance: Alert, Cooperative, No acute distress, Other (some minimal verbal skills) Limitations: Language barrier - Head Head exam: Atraumatic, Normocephalic, Normal inspection - Eye Eye exam: Normal appearance, PERRL. negative: Conjunctival injection, Scleral icterus - ENT ENT exam: Normal exam, Mucous membranes moist Ear exam: Normal external inspection Nasal Exam: Normal inspection Mouth exam: Other (tongue resting in partially in/out of mouth). negative: Tongue normal Teeth exam: Other (teeth missing) - Neck Neck exam: Normal inspection, Full ROM. negative: Tenderness - Respiratory Respiratory exam: Normal lung sounds bilaterally. negative: Accessory muscle use, Chest wall tenderness, Decreased breath sounds, Prolonged expiratory, Respiratory distress, Rhonchi, Stridor, Wheezes - Cardiovascular Cardiovascular Exam: Regular rate, Normal rhythm, Normal heart sounds Peripheral Pulses: 2+: Radial (R), Radial (L), Dorsalis Pedis (R), Dorsalis Pedis (L) - GI/Abdominal GI/Abdominal exam: Soft. negative: Distended, Guarding, Rebound, Rigid, Tenderness - Rectal Rectal exam: Deferred - exam: Deferred - Extremities Extremities exam: Joint swelling, Tenderness. negative: Normal inspection - Back Back exam: Denies: CVA tenderness (R), CVA tenderness (L), Tenderness - Neurological Neurological exam: Alert - Psychiatric Psychiatric exam: Normal affect (at his baseline), Normal mood. negative: Agitated, Anxious - Skin Skin exam: Other (pressure sore) Type of lesion: Other (pressure sore, sacral stage II) Description of rash: Erythematous Assessment and Plan - Assessment and Plan (1) Knee sprain Current Visit: Yes Status: Acute Base Code: S83.90XA - SPRAIN OF UNSPECIFIED SITE OF UNSPECIFIED KNEE, INIT ENCNTR Comment: 05/15/19 -pt ambulating with assistance to and from chair --moving lower extremities with little difficulty but freq verbal cueing 05/14/19 -pt appears to have pain control with tylenol -OT evaluated and pt is able to ambulate with gait belt and walker to/from chair and bed -pt needs continued verbal cues during ambulation (2) Weakness generalized Current Visit: No Status: Acute Base Code: R53.1 - WEAKNESS Comment: 05/15/19 -pt continues to refuse to ambulate to the restroom for ADL care -will only ambulate to and from chair and bed in the room PT eval tomorrow -sisters present visitign, aware of pt unwillingness to ambulate further than 5 feet 05/14/19 -pt needs constant verbal cueing to get out of bed, go to chair for meals and back to bed -needs assistance repositing self in bed, needs simple instructions for turning -pt is refusing to ambulate into the restroom or in to the hallway (3) Unable to ambulate Current Visit: Yes Status: Resolved Base Code: R26.2 - DIFFICULTY IN WALKING, NOT ELSEWHERE CLASSIFIED Comment: 05/15/19 -pt is able to ambulate with gait belt and walker -EVAL by OT completed with [employer] consultant provider (4) Pressure ulcer of sacral region, stage 2 Current Visit: Yes Status: Acute Base Code: L89.152 - PRESSURE ULCER OF SACRAL REGION, STAGE 2 Comment: 05/15/19 -wound cleaned with soap and water, aquacell applied and pt tolerated -turn q2 hrs 05/14/19 -stage II pressure ulcer to sacrum, andriy buttock healed ulcers noted -nursing to clean and dry area with soap and water, reposition freq (5) DVT prophylaxis Current Visit: No Status: Acute Base Code: [id number] - Comment: 05/15/19 Patient was at high risk with age and restricted mobility -lovenox 40mg SQ to be given for prophylaxis (6) Full code status Current Visit: No Status: Acute Base Code: Z78.9 - OTHER SPECIFIED HEALTH STATUS Comment: 05/15/19 patient is full code Results - Labs Result Diagrams: 05/13/19 22:25 05/13/19 22:25 Labs Last 24 Hours: Laboratory Results - last 24 hr 05/14/19 05/14/19 05/15/19 18:03 22:00 07:31 POC Glucose 75 75 79 DVT/PE Assessment - Risk for VTE Risk for VTE: No Risk Level: Moderate Risk Assessment Date: 05/15/19 Risk Assessment Time: 17:02 VTE Orders Placed or Will Be Placed: Yes - Active Medicaitons Current Medications: Current Medications Aspirin (Ecotrin (Ec)) 81 mg PO DAILY [facility] Last Admin: 05/15/19 09:22 Dose: 81 mg Documented by: Atenolol (Tenormin) 25 mg PO DAILY [facility] Last Admin: 05/15/19 09:24 Dose: 25 mg Documented by: Enoxaparin Sodium (Lovenox) 40 mg SQ DAILY [facility] Acetaminophen (Ofirmev) 1,000 mg in 100 mls @ 400 mls/hr IVPB Q6H [facility] Last Admin: 05/15/19 17:05 Dose: 400 mls/hr Documented by: Levothyroxine Sodium (Synthroid) 100 mcg PO DAILY [facility] Last Admin: 05/15/19 09:23 Dose: 100 mcg Documented by: Metformin HCl (Glucophage Xr) 500 mg PO BID [facility] Last Admin: 05/15/19 09:22 Dose: 500 mg Documented by: Pantoprazole Sodium (Protonix) 40 mg PO DAILYAC [facility] Last Admin: 05/15/19 07:33 Dose: 40 mg Documented by: Patient Own Med: Liraglutide (Victoza ) 1 each INJ DAILY [facility] Last Admin: 05/15/19 09:26 Dose: 1 each Documented by: Patient Own Med: Miglitol (Glyset) 100mg Tablet 1 each PO DAILY [facility] Last Admin: 05/15/19 10:00 Dose: 1 each Documented by: Tamsulosin HCl (Flomax) 0.4 mg PO DAILY [facility] Last Admin: 05/15/19 09:23 Dose: 0.4 mg Documented by: AMI Plan - Labs Result Diagrams: 05/13/19 22:25 05/13/19 22:25
[2019-05-15 22:27] LABS: URINE APPEARANCE CLEAR; URINE BILIRUBIN NEGATIVE (NEGATIVE); URINE BLOOD NEGATIVE (NEGATIVE); URINE GLUCOSE (UA) NEGATIVE (NEGATIVE); URINE KETONE NEGATIVE (NEGATIVE); URINE LEUKOCYTE ESTERASE NEGATIVE (NEGATIVE); URINE NITRITE NEGATIVE (NEGATIVE); URINE PROTEIN NEGATIVE (NEGATIVE); URINE UROBILINOGEN 0.2 E.U./dL (0.20 - 1.00)
[2019-05-15 22:34] LABS: URINE COLOR DARK YELLOW
[2019-05-16] MEDS: ACETAMINOPHEN 1,000 MG/100 ML BTL IVPB SCH ×2 (04:32→10:09)
[2019-05-16] MEDS: PANTOPRAZOLE SODIUM 40 MG TABLET PO SCH (07:50)
--- NOTE | 2019-05-16 09:30 | Rehab Evaluation ---
Patient Information - Patient Information Diagnosis: inability to ambulate due to leg pain Ordered Treatment: PT Evaluate and Treat Status: Initial Evaluation Surgery: No History: Detail (Pt presented to ED on 05/13/19. Per family he fell while getting into the car 2 days ago and injured his right knee. He has been unable to ambulate since then.) Past Medical/Surgical Hx: PAST MEDICAL/SURGICAL HISTORY Past Surgical History bilateral cataracts temporal artery biopsy...negative PMH - Respiratory Hx Respiratory Disorders Yes Hx Pneumonia Yes PMH - Cardiovascular Hx Cardiovascular Disorders Yes Hx Heart Attack Yes Comment: High cholesterol PMH - Neuro Hx Neurological Disorders No Comment: cognitively impaired and non-verbal PMH - GI Hx Gastrointestinal Disorders Yes Hx Gastroesophageal Reflux Yes PMH - Hx Genitourinary Disorders Yes Hx Prostate Problems Yes: cancer, shots when psa elevated PMH - Endocrine Hx Endocrine Disorders Yes Hx Diabetes Yes Hx Thyroid Disease Yes PMH - Musculoskeletal Hx Musculoskeletal Disorders Yes Hx Arthritis Yes PMH - Psych Hx Psychiatric Problems No PMH - Hematology/Oncology Hx Hematology/Oncology Yes Disorders Hx Cancer Yes: prostate, skin Hx Chemotherapy Yes Premorbid Status: Detail (Pt is non verbal and therefore unable to give a history. Per previous documentation he lives with his sister who completes all of his self care. Per this report he was ambulatory with a 2 wheeled walker. Also per this report the home was equipped with a ramp and galilea lift.) Precautions: Rosine, Fall, Other (impaired communication) - Time With Patient Total Time Spent With Patient (Min): 20 Treatment Procedures: Detail (Initial Evaluation) Subjective Information - Subjective Information Per Patient (The patient was nonverbal however he did communicate nonverbally ie: shaking his head no and rubbing his R knee and moaning/ wincing with weight bearing on R LE.) Objective Data - Mental Status Patient Orientation: Person (The patient responded to his name and to simple commands.) - ROM Other (Not assessed due to the patient's reluctance to move LE's however AROM was functional ie: patient was able to ambulate.) - Strength/Tone Other (Unable to formally test patient's strength using manual resistance due to patient's cognitive status however patient's strength was functional ie: able to move LE's in and out of bed and ambulate.) - Bed Mobility Independent (The patient was independent with supine to and from sit transfer.) - Transfers Independent (The patient was independent with sit to and from stand transfer with CG/ supervision for safety only.) - Balance Balance Sitting: Good (The patient was able to sit without support.) Balance Standing: Fair (The patient used to walker for support to stand and stood with a wide base of support.) - Gait Detail (The patient required maximal verbal encouragement to ambulate. The patient ambulated with front wheeled walker a distance of 5 feet x 1 (to wheel chair) and 10 feet x 1 (to bed). The patient's gait pattern was characterized by decreased weight bearing on R LE and decreased heel to toe weight shift . The patient occasionally moaned duing R LE weight bearing.) - Special Tests Yes (Edema is present in R knee and tenderness to palpation of R knee and quad region was noted as evidenced by pt. wincing and moaning.) Therapy Assessment - Therapy Assessment Detail (The patient completed bed mobility and transfers with supervision/CG for safety only. The patient required maximal verbal encouragement to ambulate and often moaned in pain with R LE weight bearing. Due to family not being present during PT evaluation, the patient's previous functional level is unknown. From PT evaluation from prior admission, pt.'s status was similiar: ie: wincing with pain during weight bearing with ambulation and rubbing knees. Home PT may be beneficial to assess patient's functional ability at home and to monitor R knee pain and complete pain management techniques however patient's cooperation is questionable. Subacute Rehab is not recommended at this time.) Problem List - Problem List Physical Therapy Problem List: Detail (1) R knee pain 2) Impaired ambulation due to R knee pain.) Occupational Therapy Problem List: Detail (1. Decreased functional mobility needed for safe return home. 2. Right knee pain.) Goals - Goals Physical Therapy Goals: 1) Patient will consistently ambulate household distances ( up to 20 -30 feet) with supervision for safety. 2) Decrease patient's R knee pain as measured by improved weight bearing in R LE during ambulation and decreased responses of moaning in pain and rubbing R knee. Occupational Therapy Goals: 1. Pt will be Ind with bed mobility and ambulating 10 feet with walker to allow safe return home. Plan - Plan Physical Therapy Plan: PT will monitor pts. status daily until discharge from [facility] . Home PT is recommended however patient's cooperation is questionable. Occupational Therapy Plan: OT will continue 2-4 times per week until discharge. Pt may benefit from short rehab stay or home therapy to maximize his safety and Ind.
[2019-05-16] MEDS ORDERED: LEVOTHYROXINE SODIUM 100 MCG TABLET PO SCH (10:00)
[2019-05-16] MEDS ORDERED: ENOXAPARIN 40 MG/0.4 ML SYR SQ SCH (10:00)
[2019-05-16] MEDS: ASPIRIN 81 MG TABEC PO SCH (10:10)
[2019-05-16] MEDS: METFORMIN ER HCL 500 MG TAB.ER.24H PO SCH (10:10)
[2019-05-16] MEDS: ATENOLOL 25 MG TABLET PO SCH (10:10)
[2019-05-16] MEDS: TAMSULOSIN HCL 0.4 MG CAP.ER.24H PO SCH (10:10)
[2019-05-16] MEDS: LIRAGLUTIDE INJ SCH (10:13)
[2019-05-16] MEDS: MIGLITOL PO SCH (10:14)
[2019-05-16] MEDS ORDERED: ACETAMINOPHEN 500 MG TABLET PO SCH (14:00)
--- NOTE | 2019-05-16 17:37 | Discharge Summary ---
Providers Discharge Summary Date: 05/16/19 Date of admission: 05/13/19 19:46 Expected Date of Discharge: 05/16/19 Attending physician: LISA EUCEDA Physical Exam - Vital Signs Vital Signs: Vital Signs - Last 24 Hrs Temp Pulse Resp BP Pulse Ox 05/16/19 12:11 70 16 109/86 96 05/16/19 09:00 70 16 05/16/19 06:00 97.8 F 71 18 124/66 95 05/15/19 20:49 97.7 F 69 18 97/54 97 - General General Appearance: Alert, Cooperative, No acute distress, Other (some minimal verbal skills) Limitations: Language barrier - Head Head exam: Atraumatic, Normocephalic, Normal inspection - Eye Eye exam: Normal appearance, PERRL. negative: Conjunctival injection, Scleral icterus - ENT ENT exam: Normal exam, Mucous membranes moist Ear exam: Normal external inspection Nasal Exam: Normal inspection Mouth exam: Other (tongue resting in partially in/out of mouth). negative: Tongue normal Teeth exam: Other (teeth missing) - Neck Neck exam: Normal inspection, Full ROM. negative: Tenderness - Respiratory Respiratory exam: Normal lung sounds bilaterally. negative: Accessory muscle use, Chest wall tenderness, Decreased breath sounds, Prolonged expiratory, Respiratory distress, Rhonchi, Stridor, Wheezes - Cardiovascular Cardiovascular Exam: Regular rate, Normal rhythm, Normal heart sounds Peripheral Pulses: 2+: Radial (R), Radial (L), Dorsalis Pedis (R), Dorsalis Pedis (L) - GI/Abdominal GI/Abdominal exam: Soft. negative: Distended, Guarding, Rebound, Rigid, Tenderness - Rectal Rectal exam: Deferred - exam: Deferred - Extremities Extremities exam: Joint swelling, Tenderness. negative: Normal inspection - Back Back exam: Denies: CVA tenderness (R), CVA tenderness (L), Tenderness - Neurological Neurological exam: Alert - Psychiatric Psychiatric exam: Normal affect (at his baseline), Normal mood. negative: Agitated, Anxious - Skin Skin exam: Other (pressure sore) Type of lesion: Other (pressure sore, sacral stage II) Description of rash: Erythematous Hospitalization - Hospitalization Admission Diagnosis: Inability to ambute due to leg pain - Problem List/Discharge Diagnosis (1) Knee sprain Current Visit: Yes Status: Acute Base Code: S83.90XA - SPRAIN OF UNSPECIFIED SITE OF UNSPECIFIED KNEE, INIT ENCNTR Comment: 05/16/19 pt to continue scheduled tylenol and adding voltaren gel to andriy knees -home PT/OT and snf ordered and to arrive tomorrow -home with family 05/15/19 -pt ambulating with assistance to and from chair --moving lower extremities with little difficulty but freq verbal cueing 05/14/19 -pt appears to have pain control with tylenol -OT evaluated and pt is able to ambulate with gait belt and walker to/from chair and bed -pt needs continued verbal cues during ambulation (2) Weakness generalized Current Visit: No Status: Acute Base Code: R53.1 - WEAKNESS Comment: 05/16/19 -home PT with [facility] 05/15/19 -pt continues to refuse to ambulate to the restroom for ADL care -will only ambulate to and from chair and bed in the room PT eval tomorrow -sisters present visitign, aware of pt unwillingness to ambulate further than 5 feet 05/14/19 -pt needs constant verbal cueing to get out of bed, go to chair for meals and back to bed -needs assistance repositing self in bed, needs simple instructions for turning -pt is refusing to ambulate into the restroom or in to the hallway (3) Unable to ambulate Current Visit: Yes Status: Resolved Base Code: R26.2 - DIFFICULTY IN WALKING, NOT ELSEWHERE CLASSIFIED Comment: 05/16/19 -pt ambulating with assistance 05/15/19 -pt is able to ambulate with gait belt and walker -EVAL by OT completed with supervisor [employer] production provider (4) Pressure ulcer of sacral region, stage 2 Current Visit: Yes Status: Acute Base Code: L89.152 - PRESSURE ULCER OF SACRAL REGION, STAGE 2 Comment: 05/16/19 -skilled nurse home care to assist with wound care, pressure reducing cushion to be provided by [facility], family to reposition pt freq, encouraging ambulation 05/15/19 -wound cleaned with soap and water, aquacell applied and pt tolerated -turn q2 hrs 05/14/19 -stage II pressure ulcer to sacrum, andriy buttock healed ulcers noted -nursing to clean and dry area with soap and water, reposition freq (5) DVT prophylaxis Current Visit: No Status: Acute Base Code: [id number] - Comment: 05/16/19 Patient was at high risk with age and restricted mobility -lovenox 40mg SQ to be given for prophylaxis (6) Full code status Current Visit: No Status: Acute Base Code: Z78.9 - OTHER SPECIFIED HEALTH STATUS Comment: 05/16/19 patient is full code - Hospitalization Course Disposition: Home Health Service Hospital Course: 88 yo male presented to [facility] ER with his sisters for knee pain s/p slip and fall a few days prior to the visit. Family denies he hit is head or any LOC. Pt has recently been refusing to bend or bare weight on right knee. Pt has baseline cognitive impairment, is non verbal and lives with sisters who are care givers. XR right hip, knee, ankle neg for acute fx- OA noted CT right leg neg for acute process, severe OA noted Admission for pain control and ADL assistance as pt lives with sisters in their 80s. Vitals and labs as documented below. 05/13/19 15:37 Temperature 97.7 F Pulse Rate 90 Respiratory 18 Rate Respiratory WNL Depth Respiratory WNL Effort Respiratory WNL Pattern Blood Pressure 102/61 Pulse Ox 96 Oxygen Delivery Room Air Method 05/13/19 05/13/19 22:25 22:25 WBC 10.1 RBC 4.35 L Hgb 12.6 L Hct 40.0 L MPV 10.7 H Absolute Neutrophils 6.07 Sodium 138 Potassium 4.4 Chloride 101 Carbon Dioxide 24.0 Anion Gap 13.0 BUN 23 Creatinine 1.3 H Estimated GFR 55 Random Glucose 126 H Calcium 9.0 Total Bilirubin 0.80 AST 16 ALT 19 Alkaline Phosphatase 60 Total Protein 6.0 L Albumin 3.1 L Globulin 2.9 Albumin/Globulin Ratio 1.1 05/14/19 Pt resing in bed, no acute distress, moving both legs with little difficulty. No bruising, hematoma or abrasions noted to legs or hips. Pt is non verbal, follows simple commands and appears to have mild tartative dyskinesia as his tongue rests in the partially out position, no teeth noted. Pt makes eye contact but does not maintain. Lungs CTA, heart RRR, no edema noted. Stage II pressure ulcer noted to sacral area. OT contacted for evaluation to assist staff with transfer care as pt is non verbal. Pt is able to ambulate to and from chair/bed with gait belt walker, and verbal instructions. Pt is not calling out in pain, is moving right and left leg in bed with no difficulty. Bearing wgt with slow gait. POC contact pt family, get baseline mobility status and assiste with PT/OT eval and POC. PCP Dr Verdin Procedures: Imaging and X-Rays 05/13/19 15:47 ANKLE RIGHT 3 VIEWS [RAD] Stat HIP,UNILAT, 1 VIEW RIGHT [RAD] Stat KNEE, RIGHT 3 VIEWS [RAD] Stat 05/13/19 17:18 LOWER EXTREMITY WO CONTRAST [CT] Stat Abnormal Labs: Abnormal Lab Results 05/13/19 05/13/19 05/16/19 Range/Units 22:25 22:25 07:22 RBC 4.35 L (4.40-5.70) M/uL Hgb 12.6 L (14.0-18.0) gm/dl Hct 40.0 L (42.0-52.0) % MCHC 31.5 L (32-36) g/dl MPV 10.7 H (7.4-10.4) fl Monocytes % 21.0 H (0-9) % Creatinine 1.3 H (0.7-1.2) mg/dL POC Glucose 69 L (70-110) mg/dL Random Glucose 126 H (74-109) mg/dL Total Protein 6.0 L (6.6-8.7) g/dL Albumin 3.1 L (4.0-5.0) g/dL Condition at Discharge: (2) Stable Discharge Medications - Discharge Medications Prescriptions: Diclofenac Sodium [Voltaren] 100 gm TP BID #1 tube Home Medications: Ambulatory Orders Aspirin [Adult Low Dose Aspirin EC] 81 mg PO DAILY 05/14/16 [Last Taken 05/14/16] Atenolol [Tenormin] 25 mg PO DAILY 05/14/16 [Last Taken 05/14/16] Levothyroxine Sodium [Synthroid] 100 mcg PO DAILY 05/14/16 [Last Taken 05/14/16] Omeprazole [Prilosec] 20 mg PO DAILY 05/14/16 [Last Taken 05/14/16] Tamsulosin HCl [Flomax] 0.4 mg PO DAILY 05/14/16 [Last Taken 05/13/16] Liraglutide [Victoza 3-Mickey] 1.2 mg SQ DAILY 05/13/19 [Last Taken Unknown] Metformin HCl [Metformin HCl ER] 500 mg PO BID 05/13/19 [Last Taken Unknown] Miglitol 100 mg PO DAILY 05/13/19 [Last Taken Unknown] Acetaminophen [Tylenol 500Mg Tab] 1,000 mg PO Q8HR tablet 05/16/19 [Last Taken Unknown] Diclofenac Sodium [Voltaren] 100 gm TP BID #1 tube 05/16/19 [Last Taken Unknown] Discharge Plan - Discharge Instructions Activity at Discharge: As Per Physical Therapy Diet at Discharge: Advance to Usual Diet Additional Instructions: [facility] will be contacting you tomorrow to set up initial in home visit for nursing and physical therapy. . Please schedule a one week hospital follow up appointment with your primary care physician at [facility]. Give tylenol regularly as suggested in d/c orders, apply voltaren gel to both knees twice daily for pain. Have Donavan reposition himself frequently in his chair, get a pressure reducing cushion and wound care. Quality Measures - Quality Measures Quality Measures: Advance Directives, Documentation of Current Medications in Medical Record, Elder Maltreatment Screen and Follow-Up Plan, Screening for High Blood Pressure and F/U Documented - Current Medications Quality Measure: Measure #130: Documentation of Current Medications Documentation of Current Medications: <Current Medications Documented/Reviewed> [G8427] - Blood Pressure Screening Quality Measure: Screening for High Blood Pressure and Follow-Up Documented Does Patient Have Any of the Following: Active Dx of HTN Blood Pressure Classification: Normal BP Reading Systolic Measurement: 102 Diastolic Measurement: 61 Screening for High Blood Pressure: Patient Exclusion, Hx of HTN [G9744] - Advance Directives Quality Measure: Measure #47: Care Plan Advance Directives Established: No Advance Directives Information Provided To Patient: Declined Advance Directives on File: No Living Will: No Power of Pacs Administrator: Yes Power of Pacs Administrator Name: REZA WOODALL Advance Care Planning: <Care Plan/Decision Maker Documented; Discussed & Documented> [[id number]] - Elder Abuse Suspicion Index Screening: Elder Abuse Suspicion Index Screening Rely on people for bathing, dressing, shopping, banking, etc: Did Not Answer Prevented from getting food, clothes, medication, etc: Did Not Answer Made to feel shamed or threatened by someone: Did Not Answer Forced to sign papers or use money against will: Did Not Answer Feel afraid, touched in ways not wanted or hurt physically: Did Not Answer Poor eye contact, withdrawn, malnourished, cuts or bruises: Did Not Answer Screening Result: Negative result EASI Reference Information: Elpidio ESTES, Mary Beth Watt, Magalie Kumari, Alec Emmanuel.Development and validation of a tool to assist physicians identification of elder abuse: The Elder Abuse Suspicion Index (EASI ). Journal of Elder Abuse and Neglect, 2008; 20 (3): 276-300. - Elder Maltreatment Screen Quality Measures: Elder Maltreatment Screen and Follow-Up Plan Elder Maltreatment Screen: <Negative, No Follow-Up Plan Required> [G0093]
== END 2019-05-16 19:04 | disposition home health service (06) ==
LOC: ER 15:34 → MEDSURG 19:46
PROVIDERS: ADMIT Internal Medicine; ATTEND Internal Medicine
DX: S83.91XA Sprain of unspecified site of right knee, initial encounter (principal); R26.2 Difficulty in walking, not elsewhere classified; R53.1 Weakness; L89.152 Pressure ulcer of sacral region, stage 2; E11.9 Type 2 diabetes mellitus without complications; E78.00 Pure hypercholesterolemia, unspecified; K21.9 Gastro-esophageal reflux disease without esophagitis; M19.90 Unspecified osteoarthritis, unspecified site; I25.2 Old myocardial infarction; W18.30XA Fall on same level, unspecified, initial encounter; Z85.46 Personal history of malignant neoplasm of prostate; Z85.828 Personal history of other malignant neoplasm of skin
CPT/HCPCS: 85025; 80053; 36416 ×3; 82948 ×3; 81003; 73610; 73562; 73501; 73700; G0378 ×4; 96365; 96366; 97116; 99217; 99220; 99285; J1650

== ENCOUNTER 2019-06-24 09:40 | Emergency (ER) | payer MEDICARE, MEDICAID ==
[2019-06-24] MEDS ORDERED: 0.9 % SODIUM CHLORIDE 1,000 ML BAG IV ONE (10:05)
--- NOTE | 2019-06-24 10:12 | Emergency Department Record ---
History of Present Illness - General Chief complaint: Dehydration Stated complaint: THINKS HE DEHYDRATED Time Seen by Provider: 06/24/19 10:00 Source: Family Mode of Arrival: Ambulatory Limitations: No limitations - History of Present Illness Initial comments: The patient is here due to generalized weakness for 4-5 days. He has had some loose stools but no fever, nausea, vomiting, blood in the stool or pain. The patient is less alert than normal and walking MUCH slower. He did see his PCP this week and did have some blood drawn that did demonstrate some type of abnormality but the family and patient are not sure what it was. MD Complaint: Generalized weakness Onset/Timin -: Days(s) Improves with: None Worsens with: None Associated Symptoms: Other - Related Data Previous Rx's Medication Instructions Recorded Acetaminophen [Tylenol 500Mg Tab] 1,000 mg PO Q8HR tablet 05/16/19 Diclofenac Sodium [Voltaren] 100 gm TP BID #1 tube 05/16/19 Allergies Allergy/AdvReac Type Severity Reaction Status Date / Time metformin Allergy DIARRHEA Verified 09/22/17 13:35 Travel Screening - Travel/Exposure Within Last 30 Days Have you traveled within the last 30 days?: No Review of Systems Constitutional: Reports: Malaise. Denies: Chills, Fever ENT: Denies: Congestion Respiratory: Denies: Cough Cardiovascular: Denies: Arrhythmia, Chest pain Endocrine: Reports: Fatigue Gastrointestinal: Reports: Diarrhea. Denies: Nausea, Vomiting Genitourinary: Denies: Dysuria Musculoskeletal: Denies: Arthralgia Neurological: Reports: Abnormal gait Past Medical History - SOCIAL HISTORY Smoking Status: Never smoker - RESPIRATORY Hx Respiratory Disorders: Yes Hx Pneumonia: Yes - CARDIOVASCULAR Hx Cardio Disorders: Yes Hx Heart Attack: Yes Comment:: High cholesterol - NEURO Hx Neuro Disorders: No Comment:: cognitively impaired and non-verbal - GI Hx GI Disorders: Yes Hx Reflux: Yes - Hx Genitourinary Disorders: Yes Hx Prostate Problems: Yes (cancer, shots when psa elevated) - ENDOCRINE Hx Endocrine Disorders: Yes Hx Diabetes: Yes - MUSCULOSKELETAL Hx Musculoskeletal Disorders: Yes Hx Arthritis: Yes - PSYCH Hx Psych Problems: No - HEMATOLOGY/ONCOLOGY Hx Hematology/Oncology Disorders: Yes Hx Cancer: Yes (prostate, skin) Hx Chemotherapy: No Hx Radiation Therapy: No Family Medical History Any Significant Family History?: Yes Family Hx Comment (NOT TO BE USED IN PLACE OF ITEMS BELOW): data obtained from prior admissions Hx Cancer: Brother/Sister Hx Heart Disease: Father Hx Stroke: Brother/Sister *Stroke Comment: sister had mini stroke Physical Exam - General General Appearance: Alert, Cooperative, No acute distress - Head Head exam: Atraumatic, Normocephalic - Eye Eye exam: PERRL - ENT ENT exam: Mucous membranes dry Throat exam: negative: Normal inspection - Neck Neck exam: Normal inspection, Full ROM. negative: Lymphadenopathy, Tenderness - Respiratory Respiratory exam: Normal lung sounds bilaterally. negative: Respiratory distress - Cardiovascular Cardiovascular Exam: Regular rate, Normal rhythm, Normal heart sounds - GI/Abdominal GI/Abdominal exam: Soft, Normal bowel sounds. negative: Tenderness - Extremities Extremities exam: Normal inspection - Neurological Neurological exam: Abnormal gait (Chronic.), Alert. negative: Altered (He is awake and alert and just nods yes and no to questions.), Motor sensory deficit, Normal gait, Oriented X3 (The patient is not oriented to name, place or age but that is normal for hime. ) - Skin Skin exam: negative: Rash Course Vital Signs 06/24/19 09:51 Pulse Rate [ 69 Pulse Ox Probe] Respiratory 20 Rate Blood Pressure 116/74 [Left Arm] Pulse Ox 96 - Reevaluation(s) Reevaluation #1: The patient seems to be doing fairly well at this time. His lab work so far is normal. We did find that the lab that was elevated yesterday was a lactic acid so we did just send that test along with a CRP and Procalcitonin. 06/24/19 12:07 Reevaluation #2: The patient is doing very well at this time. He is acting normally per family and his Lactic acid and procalcitonin are normal. The patient's temp is low but I see no signs of any thyroid issue or infection. I did offer to keep the patient here over the next few hours to make sure his temp returns to normal but the family would like to go home. They say that since his lab work is normal and he is acting normally they would like to take him home. Since he is doing so well and clearly back to normal I do not feel the need to keep him here against family's wishes. The patient does have an appointment for Thursday with his PCP and the family is encouraged to bring all the lab results there. 06/24/19 13:20 Medical Decision Making - Lab Data Result diagrams: 06/24/19 10:00 06/24/19 10:00 Disposition Disposition: Discharge Clinical Impression: Weakness generalized Disposition: Home, Self-Care Condition: (2) Stable Instructions: Dehydration (ED) Additional Instructions: Please continue your regular medicines except for the Thyroid medicine. Please hold the Levothyroxine until Thursday when you see your doctor. Please make sure the patient is covered up and keep the appointment for Thursday. Return to the ER for any worsening issues. Forms: Patient Portal Access Time of Disposition: 13:19 Quality - Quality Measures Quality Measures: N/A - Blood Pressure Screening View Details: Yes Does Patient Have Any of the Following: No Blood Pressure Classification: Pre-Hypertensive BP Reading Systolic Measurement: 121 Diastolic Measurement: 74 Screening for High Blood Pressure: < Pre-Hypertensive BP, F/U Documented > [[id number]] Pre-Hypertensive Follow-up Interventions: Referral to alternative/primary care provider.
[2019-06-24 10:42] LABS: ABSOLUTE NEUTROPHIL COUNT 3.12; BASO % 0.5 % (0-6); EOS % 3.3 % (0-6); GRAN % 53.4 % (47-80); HEMATOCRIT 39.1 % (42.0-52.0); HEMOGLOBIN 12.4 gm/dl (14.0-18.0); LYMPH % 29.3 % (16-45); MEAN CELL VOLUME 92.9 fl (81-97); MEAN CORPUSCULAR HGB CONC 31.7 g/dl (32-36); MEAN PLATELET VOLUME 11.3 fl (7.4-10.4); MONO % 13.5 % (0-9); PLATELET COUNT 189 K/uL (130-400); RED BLOOD COUNT 4.21 M/uL (4.40-5.70); WHITE BLOOD COUNT W/O DIFF 5.8 K/uL (4.2-12.2)
[2019-06-24 10:50] LABS: MEAN CORPUSCULAR HEMOGLOBIN 29.4 pg (27-33)
[2019-06-24 10:52] LABS: BLOOD UREA NITROGEN 11 mg/dL (8-23); CREATININE 1.1 mg/dL (0.7-1.2); EST GLOMERULAR FILTRATION RATE > 60 mL/min
[2019-06-24 10:53] LABS: TOTAL PROTEIN 6.5 g/dL (6.6-8.7)
[2019-06-24 10:54] LABS: INR 1.1; PARTIAL THROMBOPLASTIN TIME 29.7 SECONDS (24.5-39.1); PROTHROMBIN TIME (PATIENT) 11.4 SECONDS (9.5-12.1); URINE APPEARANCE CLEAR; URINE BILIRUBIN NEGATIVE (NEGATIVE); URINE BLOOD TRACE-NONHEMOLYZED (NEGATIVE); URINE COLOR YELLOW; URINE GLUCOSE (UA) NEGATIVE (NEGATIVE); URINE KETONE NEGATIVE (NEGATIVE); URINE LEUKOCYTE ESTERASE NEGATIVE (NEGATIVE); URINE NITRITE NEGATIVE (NEGATIVE); URINE PROTEIN NEGATIVE (NEGATIVE); URINE UROBILINOGEN 0.2 E.U./dL (0.20 - 1.00)
[2019-06-24 10:55] LABS: GLUCOSE,RANDOM 79 mg/dL (74-109); URINE SQUAMOUS EPITHELIAL CELL 0 - 2 /hpf; URINE WBC 0 - 2 (0-2/hpf)
[2019-06-24 10:58] LABS: ALB/GLOB RATIO 1.4 (1.1-1.8); ALBUMIN 3.8 g/dL (4.0-5.0); ALKALINE PHOSPHATASE 74 U/L (40-129); ALT/SGPT 27 U/L (<41); AST/SGOT 37 U/L (10.0-50.0)
[2019-06-24 11:08] LABS: THYROID STIMULATING HORMONE 0.03 uIU/mL (0.270-4.20)
== END 2019-06-24 13:37 | disposition home or self-care (01) ==
LOC: ER 09:40
DX: R53.1 Weakness (principal); R19.7 Diarrhea, unspecified; I25.2 Old myocardial infarction
CPT/HCPCS: 80053; 81001; 83605; 84145; 84443; 85025; 85610; 85730; 99284